=== PATIENT | male | born 1950 | race Caucasian/White ===

== ENCOUNTER → 2016-07-14 | Outpatient (REF) | payer BC ==
[~2016-07-14] MED LIST: ATOR1TAB18 PO; DIOV80TA3 PO; DRIS50002 PO; GLIP2.5T6 PO; METF-414 PO; TRIA37.53 PO
[2016-07-14 13:42] LABS: HEP C VIRUS AB SCREEN MEDICARE 0.1 INDEX (<0.8)
== END ==
LOC: M SFHCPLAZ 09:08
PROVIDERS: ATTEND Family Medicine
DX: E11.9 Type 2 diabetes mellitus without complications (principal); Z00.00 Encounter for general adult medical examination without abnormal findings; R35.1 Nocturia; E55.9 Vitamin D deficiency, unspecified
CPT/HCPCS: 36415; 82043; 82306; 83036; 87899; G0103; G0472

== ENCOUNTER → 2016-08-14 | Outpatient (REF) | payer BC ==
[2016-08-14 13:27] LABS: ANION GAP 9 MEQ/L (8-16); BLOOD UREA NITROGEN 19 MG/DL (7-18); CALCIUM LEVEL 8.9 MG/DL (8.8-10.2); CARBON DIOXIDE LEVEL 27 MEQ/L (21-32); CHLORIDE LEVEL 102 MEQ/L (98-107); CREATININE FOR GFR 0.95 MG/DL (0.70-1.30); GLOMERULAR FILTRATION RATE > 60.0 (>49); GLUCOSE, FASTING 232 MG/DL (80-110); SODIUM LEVEL 138 MEQ/L (136-145); URIC ACID 5.6 MG/DL (3.5-7.2)
== END ==
LOC: M SFHCPLAZ 10:11
PROVIDERS: ATTEND Family Medicine
DX: M13.0 Polyarthritis, unspecified (principal); E11.9 Type 2 diabetes mellitus without complications

== ENCOUNTER → 2016-08-20 | Outpatient (CLI) | payer BC ==
--- NOTE | 2016-08-21 05:43 | REP ---
REASON: Pain, no trauma. No priors. There is mild rather symmetric appearing hip joint space narrowing with mild buttressing bilaterally. There is no acute fracture or dislocation. IMPRESSION: Mild hip degenerative changes. RIGHT HIP, TWO VIEWS: Pain, no trauma. No priors. There is mild symmetric appearing hip joint space narrowing with buttressing. There is no acute fracture or dislocation. LEFT HIP, TWO VIEWS: Pain, no trauma. No priors. There is mild symmetric appearing hip joint space narrowing with buttressing. There is no acute fracture or dislocation. Signed by Evan Gilliam DO 08/21/2016 03:36 P
--- NOTE | 2016-08-21 05:44 | REP ---
REASON: Pain. AP and lateral views only were obtained. There is slight tricompartmental marginal osteophytosis with slight medial compartmental and patellofemoral joint space narrowing. Limited two view exam shows no fracture. IMPRESSION: Chronic changes as described above. Signed by Evan Gilliam DO 08/21/2016 03:36 P
== END ==
LOC: M WUC 18:31
PROVIDERS: ATTEND Family Medicine
DX: M13.0 Polyarthritis, unspecified (principal); M25.561 Pain in right knee; M25.552 Pain in left hip; M25.551 Pain in right hip

== ENCOUNTER → 2016-09-02 | Outpatient (REF) | payer BC ==
[2016-09-04 00:08] LABS: Lyme Disease IgG/IgM Antibodie <0.91 ISR (0.00-0.90); Lyme Disease IgM Ab Quantitati <0.80 index (0.00-0.79)
== END ==
LOC: M SFHCPLAZ 08:22
PROVIDERS: ATTEND Family Medicine
DX: R53.83 Other fatigue (principal); M70.72 Other bursitis of hip, left hip

== ENCOUNTER → 2017-01-06 | Outpatient (REF) | payer BC ==
[~2017-01-06] MED LIST changes: -ATOR1TAB18 PO; +ATOR80TA59 PO
== END ==
LOC: M SFHCPLAZ 11:39
PROVIDERS: ATTEND Family Medicine
DX: E11.9 Type 2 diabetes mellitus without complications (principal)

== ENCOUNTER → 2017-12-28 | Outpatient (REF) | payer BC ==
[2017-12-28 13:00] LABS: ANION GAP 9 MEQ/L (8-16); BLOOD UREA NITROGEN 18 MG/DL (7-18); CALCIUM LEVEL 9.5 MG/DL (8.8-10.2); CARBON DIOXIDE LEVEL 28 MEQ/L (21-32); CHLORIDE LEVEL 104 MEQ/L (98-107); CHOLESTEROL LEVEL 144 MG/DL (<200); CHOLESTEROL RISK RATIO 3.063 (<5); CREATININE FOR GFR 0.98 MG/DL (0.70-1.30); GLOMERULAR FILTRATION RATE > 60.0 (>49); GLUCOSE, FASTING 91 MG/DL (70-100); HDL CHOLESTEROL 47 MG/DL (>40); LDL CHOLESTEROL 58 MG/DL (<100); NON-HDL-C 97 MG/DL; SODIUM LEVEL 141 MEQ/L (136-145); TRIGLYCERIDES LEVEL 197 MG/DL (<150)
[2017-12-28 13:07] LABS: ESTIMATED AVERAGE GLUCOSE 186 MG/DL (60-110); HEMOGLOBIN A1c 8.1 %
[2017-12-28 13:08] LABS: TOTAL 25(OH) VITAMIN D 36.2 NG/ML (30.0-100.0)
[2017-12-28 13:40] LABS: MALB URINE SIEMENS 14.1 MG/L
[2017-12-28 13:44] LABS: MAU/CREAT RATIO 10.1 MCG/MG (0.0-30.0)
== END ==
LOC: M SFHCPLAZ 11:32
DX: E11.65 Type 2 diabetes mellitus with hyperglycemia (principal); E55.9 Vitamin D deficiency, unspecified
CPT/HCPCS: 83036

== ENCOUNTER → 2018-01-04 | Outpatient (CLI) | payer BC | LOC: M RAD 08:31 | DX: Z87.891 Personal history of nicotine dependence (principal) | CPT/HCPCS: 76706 ==

== ENCOUNTER → 2018-08-10 | Outpatient (REF) | payer BC ==
[~2018-08-10] MED LIST changes: -DRIS50002 PO; +DRIS50003 PO
[2018-08-10 14:36] LABS: BLOOD UREA NITROGEN 17 MG/DL (7-18); CALCIUM LEVEL 8.9 MG/DL (8.8-10.2); CARBON DIOXIDE LEVEL 25 MEQ/L (21-32); CHLORIDE LEVEL 106 MEQ/L (98-107); CREATININE FOR GFR 0.93 MG/DL (0.70-1.30); GLOMERULAR FILTRATION RATE > 60.0 (>49); GLUCOSE, FASTING 207 MG/DL (70-100); POTASSIUM SERUM 3.7 MEQ/L (3.5-5.1); SODIUM LEVEL 139 MEQ/L (136-145)
== END ==
LOC: M SFHCPLAZ 11:12
PROVIDERS: ATTEND Family Medicine
DX: E11.65 Type 2 diabetes mellitus with hyperglycemia (principal)

== ENCOUNTER → 2018-12-14 | Outpatient (REF) | payer BC ==
[2018-12-14 13:07] LABS: BLOOD UREA NITROGEN 17 MG/DL (7-18); CALCIUM LEVEL 9.3 MG/DL (8.8-10.2); CARBON DIOXIDE LEVEL 27 MEQ/L (21-32); CHLORIDE LEVEL 103 MEQ/L (98-107); CREATININE FOR GFR 1.02 MG/DL (0.70-1.30); GLOMERULAR FILTRATION RATE > 60.0 (>49); GLUCOSE, FASTING 248 MG/DL (70-100); POTASSIUM SERUM 4.1 MEQ/L (3.5-5.1); SODIUM LEVEL 137 MEQ/L (136-145)
[2018-12-14 13:21] LABS: HEMOGLOBIN A1c 8.9 %
== END ==
LOC: M SFHCPLAZ 09:06
PROVIDERS: ATTEND Family Medicine
DX: E11.65 Type 2 diabetes mellitus with hyperglycemia (principal)

== ENCOUNTER → 2018-12-20 | Outpatient (CLI) | payer BC ==
--- NOTE | 2018-12-20 14:33 | REP ---
ULTRASOUND ABDOMINAL AORTA: Real-time sonographic evaluation of the abdominal aorta performed. There is no sonographic evidence of abdominal aortic aneurysm. Proximally, the maximum AP diameter of the abdominal aorta just below the diaphragm is at 3.2 cm, mid aspect 2.7 cm and distally, 2.3 cm. Common iliac arteries are slightly ectatic, right measuring 1.2 cm and left 1.4 cm in AP dimension. There is mild scattered atherosclerotic plaquing. IMPRESSION: Slight ectasia of the very proximal abdominal aorta, maximum AP diameter 3.2 cm. Otherwise, no sonographic evidence of abdominal aortic aneurysm. Electronically Signed by Rajesh Smith MD 12/21/2018 01:55 P
== END ==
LOC: M RAD 08:14
PROVIDERS: ATTEND Family Medicine
DX: I71.2 Thoracic aortic aneurysm, without rupture (principal)

== ENCOUNTER → 2018-12-28 | Outpatient (REF) | payer BC ==
[2018-12-28 12:21] LABS: APPEARANCE, URINE CLEAR (CLEAR); BACTERIA, URINE AUTO NEGATIVE (NEGATIVE); BILIRUBIN, URINE AUTO NEGATIVE (NEGATIVE); BLOOD, URINE BLOOD 3+ (NEGATIVE); COLOR, URINE YELLOW (YELLOW); GLUCOSE, URINE (UA) AUTO 3+ mg/dL (NEGATIVE); KETONE, URINE AUTO TRACE mg/dL (NEGATIVE); LEUKOCYTE ESTERASE, URINE AUTO NEGATIVE (NEGATIVE); MUCUS, URINE SMALL (NEGATIVE); NITRITE, URINE AUTO NEGATIVE (NEGATIVE); PROTEIN, URINE AUTO NEGATIVE (NEGATIVE); RBC, URINE AUTO 16 /HPF (0-3); SPECIFIC GRAVITY URINE AUTO 1.017 (1.002-1.035); SQUAMOUS EPITHELIAL CELL UR AU 0 /HPF (0-6); UROBILINOGEN, URINE AUTO 0.2 mg/dL (0.0-2.0); WBC, URINE AUTO 1 /HPF (0-3)
[2018-12-28 12:22] LABS: BASO # 0.1 10^3/uL (0.0-0.2); BASO % 0.7 % (0.0-1.0); EOS # 0.2 10^3/uL (0.0-0.5); EOS % 2.1 % (0.0-3.0); HEMATOCRIT 43.5 % (42.0-52.0); HEMOGLOBIN 14.8 g/dl (13.5-17.5); LYMPH # 2.7 10^3/uL (1.5-5.0); LYMPH % 27.2 % (24.0-44.0); MEAN CORPUSCULAR HEMOGLOBIN 28.8 pg (27.0-33.0); MEAN CORPUSCULAR VOLUME 84.6 fl (80.0-96.0); MONO # 0.8 10^3/uL (0.0-0.8); MONO % 8.5 % (0.0-5.0); NEUTROPHILS % 60.6 % (36.0-66.0); PLATELET COUNT, AUTOMATED 178 10^3/uL (150-450); RED BLOOD COUNT 5.14 10^6/uL (4.30-6.10); WHITE BLOOD COUNT 9.9 10^3/uL (4.0-10.0)
== END ==
LOC: M SFHCPLAZ 10:37
PROVIDERS: ATTEND Family Medicine
DX: R31.0 Gross hematuria (principal)

== ENCOUNTER → 2019-01-03 | Outpatient (CLI) | payer BC ==
--- NOTE | 2019-01-04 04:46 | REP ---
Clinical: Gross hematuria. Technique: Real time romero scale ultrasound examination using curved array transducer. Findings: The bilateral kidneys are normal in contour, size, echogenicity, and reniform shape. No hydronephrosis, nephrolithiasis, renal mass lesion or perinephric fluid collection identified. Bladder is normal and bilateral ureteral jets are identified. Right kidney measures 12.0 x 5.5 x 5.8 cm without cyst. Left kidney measures 13.5 x 8.2 x 6.3 cm and includes 1.9 cm upper pole cyst and 4.5 cm lower pole cyst. Impression: 1. Simple left renal cysts. 2. Otherwise normal renal ultrasound. Electronically Signed by Adam Sullivan MD 01/04/2019 04:37 A
== END ==
LOC: M RAD 08:08
PROVIDERS: ATTEND Family Medicine
DX: N28.1 Cyst of kidney, acquired (principal)

== ENCOUNTER → 2019-01-04 | Outpatient (CLI) | payer BC ==
[2019-01-04 13:59] LABS: BLOOD UREA NITROGEN 16 MG/DL (7-18); CALCIUM LEVEL 9.2 MG/DL (8.8-10.2); CARBON DIOXIDE LEVEL 28 MEQ/L (21-32); CHLORIDE LEVEL 104 MEQ/L (98-107); CREATININE FOR GFR 1.04 MG/DL (0.70-1.30); GLOMERULAR FILTRATION RATE > 60.0 (>49); GLUCOSE, FASTING 82 MG/DL (70-100); POTASSIUM SERUM 4.2 MEQ/L (3.5-5.1); SODIUM LEVEL 141 MEQ/L (136-145)
[2019-01-04 14:52] LABS: APPEARANCE, URINE CLEAR (CLEAR); BACTERIA, URINE AUTO NEGATIVE (NEGATIVE); BILIRUBIN, URINE AUTO NEGATIVE (NEGATIVE); BLOOD, URINE BLOOD NEGATIVE (NEGATIVE); COLOR, URINE STRAW (YELLOW); GLUCOSE, URINE (UA) AUTO NEGATIVE (NEGATIVE); KETONE, URINE AUTO NEGATIVE (NEGATIVE); LEUKOCYTE ESTERASE, URINE AUTO NEGATIVE (NEGATIVE); MUCUS, URINE SMALL (NEGATIVE); NITRITE, URINE AUTO NEGATIVE (NEGATIVE); PROTEIN, URINE AUTO NEGATIVE (NEGATIVE); RBC, URINE AUTO 0 /HPF (0-3); SPECIFIC GRAVITY URINE AUTO 1.006 (1.002-1.035); SQUAMOUS EPITHELIAL CELL UR AU 0 /HPF (0-6); UROBILINOGEN, URINE AUTO 0.2 mg/dL (0.0-2.0); WBC, URINE AUTO 0 /HPF (0-3)
== END ==
LOC: M SMT 11:21
PROVIDERS: ATTEND Nurse Practitioner Women's Health
DX: R31.0 Gross hematuria (principal); Z12.5 Encounter for screening for malignant neoplasm of prostate
CPT/HCPCS: 36415; 80048; 81001; 87086; G0103

== ENCOUNTER → 2019-01-04 | Outpatient (REF) | payer BC | LOC: M SMT 13:28 | PROVIDERS: ATTEND Nurse Practitioner Women's Health | DX: R31.0 Gross hematuria (principal) ==

== ENCOUNTER → 2019-01-10 | Outpatient (CLI) | payer BC ==
[~2019-01-10] MED LIST changes: +ISOVUE-370 76% 100ML VIAL (Q9967) As Ordered ONE
--- NOTE | 2019-01-10 12:10 | REP ---
REASON: Gross hematuria. PRIORS: None. CONTRAST: [address] urogram is also performed. The lung bases are clear. The precontrast enhanced portion of the examination shows hepatic and splenic densities to be within normal limits. There are no choleliths. Two left sided nephroliths are seen in the inferior pole region. Two low density structures are also seen arising from the inferior pole. The largest measures 3.7 cm and both have Hounsfield unit density readings of water. There are two tiny calcific densities in the inferior pole of the right kidney. No obstructive phenomena is seen on either side. There are no ureteroliths and there are no urinary bladder calcifications. There are bilateral pelvic phleboliths. Contrast enhanced portion of the examination shows additional small low density structures in the left kidney, one in the inferior pole and one in the superior pole, the largest of which measures 1.5 cm and neither of which show any enhancement characteristics and both having water density Hounsfield unit readings. The aforementioned cysts in the inferior pole also show no evidence of contrast enhancement whatsoever. The liver, gallbladder, spleen, pancreas, and adrenal glands are within normal limits. The abdominal aorta and paraaortic regions are within normal limits. The bowel loops and their mesenteries are within normal limits. There are scattered colonic diverticula. There is no free fluid or free air. CT PELVIS: The bowel loops and their mesenteries are within normal limits. There is no mass or adenopathy. Delayed imaging through the urinary bladder shows no evidence of a filling defect involving any portion of the contrast opacified urinary bladder. CT urography shows no evidence of hydronephrosis or hydroureter. Incomplete opacification seen involving the inferior aspect of each ureter on the 3D MIP images. Bone window technique throughout the exam shows chronic spinal and sacroiliac joint degenerative changes. There is bilateral L5 spondylolysis in conjunction with a grade 1 L5 upon S1 spondylolisthesis. IMPRESSION: 1. Multiple renal cysts as described above. These are Bosniak class I simple cysts. 2. Bilateral tiny nonobstructing renal calculi as described above. 3. No evidence of obstructive uropathy or urinary bladder filling defect as described above. 4. Chronic osseous changes as described above. 5. Other findings as described above. Electronically Signed by Evan Gilliam DO 01/10/2019 02:38 P
== END ==
LOC: M RAD 07:33
PROVIDERS: ATTEND Nurse Practitioner Women's Health
DX: N28.1 Cyst of kidney, acquired (principal); N20.0 Calculus of kidney; R31.0 Gross hematuria
CPT/HCPCS: 74178; Q9967

== ENCOUNTER 2019-01-24 02:58 | Observation (INO) | payer BC ==
[~2019-01-24] VITALS: Ht 177.8 cm; Wt 102.2 kg
[~2019-01-24 02:58] MED LIST changes: -ISOVUE-370 76% 100ML VIAL (Q9967) As Ordered ONE
[2019-01-24] MEDS ORDERED: HYDR25TAB PO (03:12)
[2019-01-24] MEDS ORDERED: METF-791 PO (03:12)
[2019-01-24] MEDS ORDERED: ATOR1TAB19 PO (03:12)
[2019-01-24] MEDS ORDERED: SPIR-10 PO (03:12)
[2019-01-24 03:28] LABS: BASO # 0.1 10^3/uL (0.0-0.2); BASO % 0.4 % (0.0-1.0); EOS # 0.1 10^3/uL (0.0-0.5); HEMOGLOBIN 14.3 g/dl (13.5-17.5); LYMPH # 1.9 10^3/uL (1.5-5.0); LYMPH % 13.7 % (24.0-44.0); MEAN CORPUSCULAR HEMOGLOBIN 29.4 pg (27.0-33.0); MEAN CORPUSCULAR VOLUME 86.2 fl (80.0-96.0); MONO # 0.8 10^3/uL (0.0-0.8); MONO % 5.5 % (0.0-5.0); NEUTROPHILS # 10.8 10^3/uL (1.5-8.5); PLATELET COUNT, AUTOMATED 198 10^3/uL (150-450); RED BLOOD COUNT 4.87 10^6/uL (4.30-6.10); WHITE BLOOD COUNT 13.7 10^3/uL (4.0-10.0)
[2019-01-24] MEDS ORDERED: MORPHINE 4 MG/ML 1ML VIAL/SYRINGE (J2270) As Ordered ONE (03:36)
[2019-01-24] MEDS ORDERED: ONDANSETRON 4MG/2ML VIAL (J2405) As Ordered ONE (03:36)
[2019-01-24] MEDS ORDERED: ONDANSETRON 4MG/2ML VIAL (J2405) IV ONE (03:45)
[2019-01-24] MEDS ORDERED: MORPHINE 4 MG/ML 1ML VIAL/SYRINGE (J2270) IV ONE ×2 (03:45→04:15)
[2019-01-24] MEDS ORDERED: NS 1,000 ML IV ONE ×2 (03:45→06:00)
[2019-01-24 03:59] LABS: ALBUMIN 4.3 GM/DL (3.2-5.2); BILIRUBIN,DIRECT 0.2 MG/DL (0.0-0.2); BILIRUBIN,TOTAL 0.5 MG/DL (0.2-1.0); CALCIUM LEVEL 9.9 MG/DL (8.8-10.2); CREATININE FOR GFR 1.62 MG/DL (0.70-1.30); GLOMERULAR FILTRATION RATE 45.6 (>49); POTASSIUM SERUM 4.1 MEQ/L (3.5-5.1); TOTAL PROTEIN 6.7 GM/DL (6.4-8.2)
[2019-01-24] MEDS ORDERED: TAMSULOSIN 0.4 MG CAP PO ONE (04:15)
[2019-01-24] MEDS ORDERED: ACETAMINOPHEN *IV* 1,000 MG in IV 1 EA IV ONE (04:15)
[2019-01-24] MEDS ORDERED: GLIP2.5T6 PO (04:32)
[2019-01-24] MEDS ORDERED: VITA2000 PO (04:32)
[2019-01-24] MEDS ORDERED: LOSA25TA14 PO (04:33)
--- NOTE | 2019-01-24 05:39 | REPVR ---
PROCEDURE INFORMATION: Exam: CT Abdomen And Pelvis Without Contrast Exam date and time: 01/24/2019 4:16 AM Clinical history: 68 years old, male; Abdominal pain; Additional info: L colic TECHNIQUE: Imaging protocol: Computed tomography of the abdomen and pelvis without contrast. Radiation optimization: All CT scans at this facility use at least one of these dose optimization techniques: automated exposure control; mA and/or kV adjustment per patient size (includes targeted exams where dose is matched to clinical indication); or iterative reconstruction. COMPARISON: CT ABD PELVIS W/O FOL BY WIT 01/10/2019 7:51 AM FINDINGS: Liver: Normal. No mass. Gallbladder and bile ducts: Normal. No calcified stones. No ductal dilation. Pancreas: Normal. No ductal dilation. Spleen: Normal. No splenomegaly. Adrenals: Minimal left adrenal gland thickening. Kidneys and ureters: 3.5 cm left renal exophytic cyst. Numerous nonobstructing renal calculi measuring up to 5 mm. Mild right renal atrophy. Mild left renal swelling and perinephric stranding with mild left renal hydronephrosis. 1.2 cm left superior renal pole cyst. Partially obstructing mid left ureteral 5 x 4 mm calculus on coronal series 202 image 55 causing mild left renal hydronephrosis. Stomach and bowel: Moderate sigmoid diverticulosis coli. Appendix: No evidence of appendicitis. Intraperitoneal space: Unremarkable. No free air. No significant fluid collection. Vasculature: Unremarkable. No abdominal aortic aneurysm. Lymph nodes: Unremarkable. No enlarged lymph nodes. Bladder: Unremarkable as visualized. Reproductive: Mild prostate gland enlargement measuring 5.3 cm, correlate with PSA. Bones/joints: L5 bilateral spondylolysis with grade 2 L5-S1 anterolisthesis. Moderate to severe associated L5-S1 foraminal stenosis. Soft tissues: Small left inguinal fat protruding hernia. IMPRESSION: 1. Partially obstructing mid left ureteral 5 x 4 mm calculus on coronal series 202 image 55 causing mild left renal hydronephrosis. Numerous additional nonobstructing bilateral renal calculi. 2. L5 bilateral spondylolysis with grade 2 L5-S1 anterolisthesis. Moderate to severe associated L5-S1 foraminal stenosis. 3. Mild prostate gland enlargement measuring 5.3 cm, correlate with PSA. Electronically signed by: Kamran Merritt On 01/24/2019 05:38:49 AM
[2019-01-24] MEDS: HumaLOG INSULIN (NovoLOG) PER UNIT SC SCH ×3 (06:00→18:36)
[2019-01-24] MEDS ORDERED: cefTRIAXone SOD 1 GM in D5W MINI-BAG PLUS 50 ML IV ONE (06:15)
[2019-01-24] MEDS ORDERED: GLUCOSE 4 GM CHEW TABLET PO PRN (06:45)
[2019-01-24] MEDS ORDERED: GLUCAGON FOR INJ 1 MG VIAL (J1610) SC PRN (06:45)
[2019-01-24] MEDS ORDERED: DEXTROSE 50% 50 ML SYRINGE IV PRN (06:45)
[2019-01-24] MEDS ORDERED: MORPHINE 10 MG/ML 1ML VIAL (J2270) IV ONE (06:45)
[2019-01-24] MEDS ORDERED: ONDANSETRON 4MG/2ML VIAL (J2405) IV PRN (07:15)
[2019-01-24] MEDS ORDERED: NS IV ONE (07:30)
[2019-01-24] MEDS ORDERED: KETAMINE HCL IV ONE (07:30)
--- NOTE | 2019-01-24 08:05 | CR.PDOC ---
General Date of Consultation: Jan 24, 2019 Consultation REASON FOR CONSULTATION/CHIEF COMPLAINT: Left colic HISTORY OF PRESENT ILLNESS: 68-year-old male with a 1 day history of left-sided colic. Patient reports the pain as severe. He reports nausea and vomiting 2. He denies fever or chills. He denies a prior history of stone disease. He currently denies gross hematuria but did no dark urine of approximately 1 month ago. Patient was seen by urology and a CT scan urogram was ordered. Patient had a 1 cm left lower pole stone and a left renal cyst with no evidence of hydronephrosis. Patient was scheduled for cystoscopy later today. A CT scan in the emergency department shows a small 4 mm left midureteral calculus with mild hydronephrosis. A 1 cm left lower pole stone is still present. Patient reports a high intake of oxalates. He denies a history of gout. ALLERGIES: Please see below. HOME MEDICATIONS: Please see below. PAST MEDICAL HISTORY: 1. Diabetes mellitus. 2. Hypertension. 3. Enlarged aorta PAST SURGICAL HISTORY: 1. Cataracts SOCIAL HISTORY: Patient reports a history of less than 1 pack per day for 10 years smoking. Patient discontinued smoking 15 years ago. REVIEW OF SYSTEMS: CONSTITUTIONAL: Denies fever or chills. Denies weight loss HEENT: Denies headache. CARDIOVASCULAR: Denies chest pain. RESPIRATORY: Denies shortness of breath. GENITOURINARY: See HPI. MUSCULOSKELETAL: Denies joint pain. GASTROINTESTINAL: Reports vomiting 2, denies diarrhea. SKIN: Denies rashes. NEUROLOGICAL: Denies neurological diseases. HEMATOLOGIC/LYMPHATIC: Denies bleeding disorders. ALLERGIC/IMMUNOLOGIC: Denies allergies. PHYSICAL EXAMINATION: VITAL SIGNS: Please see below. GENERAL APPEARANCE: Well-developed well-nourished male in no apparent distress. HEENT: Unremarkable. RESPIRATORY: No respiratory distress. CARDIOVASCULAR: No peripheral edema. ABDOMEN: Obese, nontender with no CVA tenderness. EXTREMITIES: Full range of motion. NEUROLOGICAL: No focal deficits. LABORATORY DATA: Please see below. CT scan as above WBC 13.7 BUN 19, creatinine 1.62 ASSESSMENT/PLAN: 1. Small left midureteral calculus with mild hydronephrosis. Patient is currently asymptomatic with good pain control. Treatment options were discussed including medical expulsive therapy versus ureteroscopy with laser lithotripsy and stone removal. Patient has elected medical expulsive therapy. Recommend IV hydration with analgesics as needed. Strain urine for stones. Begin Flomax 0.4 mg daily. Please schedule a KUB in the morning and patient will be reassessed for possible ureteroscopy. We will follow with you during his hospitalization. Vital Signs/I&O Vital Signs Date Time Temp Pulse Resp B/P (MAP) Pulse Ox O2 Delivery O2 Flow Rate FiO2 01/24/19 07:08 18 01/24/19 07:02 57 122/63 (82) 95 Room Air 01/24/19 02:59 97.8 I&O- Last 24 Hours up to 6 AM 01/24/19 06:00 Intake Total 1100 ml Balance 1100 ml Laboratory Data Labs 24H Laboratory Tests 2 01/24/19 03:14: Immature Granulocyte % (Auto) 0.4, White Blood Count 13.7H, Red Blood Count 4.87, Hemoglobin 14.3, Hematocrit 42.0, Mean Corpuscular Volume 86.2, Mean Corpuscular Hemoglobin 29.4, Mean Corpuscular Hemoglobin Concent 34.0, Red Cell Distribution Width 12.9, Platelet Count 198, Neutrophils (%) (Auto) 79.0H, L ymphocytes (%) (Auto) 13.7L, Monocytes (%) (Auto) 5.5H, Eosinophils (%) (Auto) 1.0, Basophils (%) (Auto) 0.4, Neutrophils # (Auto) 10.8H, Lymphocytes # (Auto) 1.9, Monocytes # (Auto) 0.8, Eosinophils # (Auto) 0.1, Basophils # (Auto) 0.1, Nucleated Red Blood Cells % (auto) 0.0, Anion Gap 11, Glomerular Filtration Rate 45.6L, Calcium Level 9.9, Aspartate Amino Transf (AST/SGOT) 21, Alanine Aminotransferase (ALT/SGPT) 39, Alkaline Phosphatase 49, Total Bilirubin 0.5, Direct Bilirubin 0.2, Total Protein 6.7, Albumin 4.3, Albumin/Globulin Ratio 1.79, Lipase 87, Prostate Specific Antigen Screen 0.95 CBC/BMP Laboratory Tests 01/24/19 03:14 Red Blood Count 4.87, Mean Corpuscular Volume 86.2, Mean Corpuscular Hemoglobin 29.4, Mean Corpuscular Hemoglobin Concent 34.0, Red Cell Distribution Width 12.9, Neutrophils (%) (Auto) 79.0 H, Lymphocytes (%) (Auto) 13.7 L, Monocytes (% ) (Auto) 5.5 H, Eosinophils (%) (Auto) 1.0, Basophils (%) (Auto) 0.4, Neutrophils # (Auto) 10.8 H, Lymphocytes # (Auto) 1.9, Monocytes # (Auto) 0.8, Eosinophils # (Auto) 0.1, Basophils # (Auto) 0.1 Allergies Coded Allergies: No Known Drug Allergies (Verified Allergy, Unknown, 01/24/19) Home Medications Scheduled Atorvastatin Calcium (Atorvastatin Calcium) 10 Mg Tablet, 10 MG PO DAILY, (Reported) Cholecalciferol (Vitamin D3) (Vitamin D3) 2,000 Unit Capsule, 2,000 UNIT PO DAILY, (Reported) Glipizide (Glipizide ER) 2.5 Mg Tab, 2.5 MG PO DAILY, (Reported) Glipizide (Glipizide ER) 2.5 Mg Tab.er.24, 5 MG PO QPM, (Reported) Hydrochlorothiazide (Hydrochlorothiazide) 25 Mg Tablet, 25 MG PO DAILY, (Reported) Losartan Potassium (Losartan Potassium) 25 Mg Tablet, 25 MG PO DAILY, (Reported) Metformin HCl (Metformin HCl ER) 500 Mg Tab.er.24h, 1,000 MG PO BID, (Reported) Spironolactone (Spironolactone) 25 Mg Tablet, 25 MG PO DAILY, (Reported) Anthony Villanueva MD Jan 24, 2019 08:05
--- NOTE | 2019-01-24 08:18 | ECGEPIP ---
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
[2019-01-24] MEDS: NS 1,000 ML IV SCH ×2 (09:05→18:36)
[2019-01-24 09:45] VITALS: BP 122/75
--- NOTE | 2019-01-24 09:53 | HPE ---
DATE OF ADMISSION: 01/24/2019 CHIEF COMPLAINT: Flank pain and hematuria. This is a 68-year-old male who has had episodic hematuria. At about 11:30 in the evening he began experiencing sharp severe pain in his left flank. He felt bloated. He had nausea and vomiting. The pain continued to get worse. He came to the emergency room. Upon arrival, temperature was 97.8, pulse 50, respirations 20, blood pressure 136/67, pulse oximetry was 98. LABORATORY STUDIES: White count was 13.7, hemoglobin 14.3, hematocrit 42, platelets 198. Electrolytes were normal. BUN was elevated slightly at 19, creatinine 1.62. Nonfasting glucose was 266. Radiology studies: He had an abnormal and pelvis CT, which showed partially obstructing mid left ureteral 5 x 4 mm calculus causing mild left renal hydronephrosis. There were numerous additional nonobstructing bilateral renal calculi, mild prostate gland enlargement measuring 5.3 cm. In the emergency room, the patient was given IV fluids. He was given Zofran for nausea and vomiting with some improvement. He was given Flomax orally. The pain continued. He was given IV Tylenol with minimal relief. He was given morphine 4 mg at 3:36 a.m. intravenously. The pain was quite intense and unrelenting. He then received ketamine 25 mg IV times one dose with improvement in his pain. The urologist, Dr. Villanueva, was contacted by the emergency room physician. CT scan was reviewed with him. He recommended admission by the hospitalist and he will do a urology consultation. Electrocardiogram (EKG) was done and showed sinus bradycardia, rate of 56. Assessment was done. The patient will be admitted for observation status to the hospitalist service with Dr. Villanueva, urology, consulting. ALLERGIES: He has seasonal allergies, no known drug allergies. PRIMARY CARE PROVIDER: Dr. Wes Weinstein SOCIAL HISTORY: He is . He occasionally has an alcoholic drink. He is a former smoker. He smoked approximately one pack a day from the age of 20 to 27. Recreational drug use is none. PAST MEDICAL HISTORY: 1. Type 2 diabetes. 2. Hypertension. 3. Hypercholesterolemia. 4. Seasonal allergies. 5. History of thoracic aortic aneurysm, 5.1 cm ascending and 4.6 cm descending. 6. History of aortic stenosis. He follows with cardiology, Dr. Singer. PAST SURGICAL HISTORY: 1. Bilateral cataract extractions. HOME MEDICATIONS: - atorvastatin 10 mg by mouth daily - vitamin D 2000 units by mouth daily - hydrochlorothiazide 25 mg by mouth daily - losartan 25 mg by mouth daily - metformin 1000 mg by mouth twice a day - spironolactone 25 mg by mouth daily - glipizide 2.5 mg by mouth daily with first meal of the day FAMILY HISTORY: Mother of liver cancer. Father of a heart attack. REVIEW OF SYSTEMS: No complaint of headache. No blurry or double vision. No fever. He has had chills. No tinnitus. No hoarseness. No difficulty swallowing. No lightheadedness. No vertigo. CARDIOVASCULAR: No complaints of chest pain, shortness of breath, palpitations, or edema. RESPIRATORY: No chronic cough. No sputum production. No hemoptysis. No orthopnea. No wheeze. GASTROINTESTINAL: He has had nausea and vomiting, left flank pain. No hematochezia or melena. GENITOURINARY: He has had hematuria. He has had three or four episodes in the last month. No dysuria. No frequency. No difficulty starting flow. MUSCULOSKELETAL: No joint redness or swelling. ENDOCRINE: History of [id number] diabetes mellitus type 2. HEMATOLOGIC: No history of easy bleeding or bruising. NEUROLOGIC: No history of seizures. No paresthesias, paralysis. PSYCHIATRIC: No anxiety, depression or suicidal ideation. PHYSICAL EXAMINATION: 68-year-old cooperative male currently complaining of left flank pain. The patient is alert and oriented times three. Blood pressure 122/60, pulse 56, respirations 15. The patient is alert and oriented times three. HEENT: Pupils are equal and reactive to light. Extraocular muscles intact. Sclerae clear. Conjunctivae normal. No facial asymmetry. Pharynx, gums and tongue pink and moist. Tongue is midline. NECK: Supple without lymphadenopathy, thyromegaly or goiter. Carotids are 2+ without bruit. CHEST: Clear to auscultation without wheeze or retraction. HEART: Regular. Grade 2/3 murmur. ABDOMEN: Soft, nontender. No masses, pulsations or bruits. No organomegaly. Bowel sounds are positive. He has positive left costovertebral angle tenderness. NEUROLOGIC: No history of seizures. No paresthesias, paralysis. PSYCHIATRIC: No anxiety, depression or suicidal ideation. ASSESSMENT AND PLAN: 1. Ureterolithiasis with acute renal insufficiency. We will consult urology. Normal saline IV fluids. Rocephin IV. Send urinalysis and urine for culture and sensitivity. Consult Dr. Villanueva of urology. 2. Renal insufficiency. Expect improvement with hydration. We will monitor closely as he does have a stone. 3. Hlv-vnhhfig-gmuavjxao diabetes mellitus type 2. While he is nothing by mouth, we will do fingerstick blood sugars every 6 hours and treat according to scale. Nothing by mouth . When no longer nothing by mouth, we will do consistent carbohydrate diet. We will restart his glipizide. If kidney function improves, we will restart his metformin as well. 4. Hypertension. Currently stable. He usually takes losartan 25 mg and hydrochlorothiazide. We will hold at this time. 5. History of aortic stenosis, grade 3/6 murmur. We will consult Dr. Singer regarding this and the thoracic aortic aneurysm if the patient requires surgery. 6. Deep vein thrombosis (DVT) prophylaxis. Early ambulation and TEDs. The patient will be admitted to observation status to the hospitalist service.
[2019-01-24 14:00] VITALS: BP 113/83
[2019-01-24] MEDS: MORPHINE 4 MG/ML 1ML VIAL/SYRINGE (J2270) IV PRN (16:07)
[2019-01-24 22:00] VITALS: BP 123/68
[2019-01-25] MEDS: HumaLOG INSULIN (NovoLOG) PER UNIT SC SCH ×4 (01:37→18:13)
[2019-01-25 02:00] VITALS: BP 135/73
[2019-01-25] MEDS: MORPHINE 4 MG/ML 1ML VIAL/SYRINGE (J2270) IV PRN ×4 (02:28→17:07)
[2019-01-25] MEDS: NS 1,000 ML IV SCH ×2 (04:00→16:09)
[2019-01-25 06:00] VITALS: BP 137/79
[2019-01-25 06:27] LABS: BASO % 0.2 % (0.0-1.0); EOS # 0.1 10^3/uL (0.0-0.5); HEMATOCRIT 36.9 % (42.0-52.0); LYMPH # 1.2 10^3/uL (1.5-5.0); LYMPH % 13.4 % (24.0-44.0); MEAN CORPUSCULAR HEMOGLOBIN 29.4 pg (27.0-33.0); MEAN CORPUSCULAR HGB CONC 33.1 g/dl (32.0-36.5); MEAN CORPUSCULAR VOLUME 88.9 fl (80.0-96.0); MONO # 0.7 10^3/uL (0.0-0.8); MONO % 7.7 % (0.0-5.0); NEUTROPHILS # 6.8 10^3/uL (1.5-8.5); NEUTROPHILS % 77.4 % (36.0-66.0); PLATELET COUNT, AUTOMATED 143 10^3/uL (150-450); RED BLOOD COUNT 4.15 10^6/uL (4.30-6.10); WHITE BLOOD COUNT 8.8 10^3/uL (4.0-10.0)
[2019-01-25 06:36] LABS: HEMOGLOBIN 12.2 g/dl (13.5-17.5)
[2019-01-25 06:55] LABS: ALBUMIN 3.2 GM/DL (3.2-5.2); BILIRUBIN,TOTAL 0.5 MG/DL (0.2-1.0); CALCIUM LEVEL 7.8 MG/DL (8.8-10.2); CREATININE FOR GFR 1.7 MG/DL (0.70-1.30); GLOMERULAR FILTRATION RATE 43.1 (>49); MAGNESIUM LEVEL 1.9 MG/DL (1.8-2.4); POTASSIUM SERUM 3.9 MEQ/L (3.5-5.1); TOTAL PROTEIN 5.8 GM/DL (6.4-8.2)
--- NOTE | 2019-01-25 08:18 | IPNPDOC ---
Date Seen The patient was seen on 01/25/19. Progress Note SUBJECTIVE: Patient continues to have pain, pain is controlled with analgesics. Denies passage of stone. No KUB performed this AM OBJECTIVE PHYSICAL EXAMINATION: VITAL SIGNS: Please see below. Abdomen: soft non tender, no CVA-tenderness LABORATORY DATA, IMAGING STUDIES, MICROBIOLOGY: Please see below. WBC 8.8 ASSESSMENT AND PLAN: Left ureteral calculus. Patient wishes to continue with ks dical expulsive therapy. Patient has a low grade fever this AM. Patient to continue with oral hydration, Flomax. Strain urine. Begin antibiotics. If has continue to have fever will need double J stent. Will check KUB this AM. VS, I&O, 24H, Fishbone Vital Signs/I&O Vital Signs Date Time Temp Pulse Resp B/P (MAP) Pulse Ox O2 Delivery O2 Flow Rate FiO2 01/25/19 06:44 18 01/25/19 06:00 100.0 55 137/79 (98) 90 01/24/19 09:28 Room Air I&O- Last 24 Hours up to 6 AM 01/25/19 06:00 Intake Total 4400 ml Output Total 1050 ml Balance 3350 ml Laboratory Data 24H LABS Laboratory Tests 2 01/24/19 12:28: Bedside Glucose (Misc Panel) 170H 01/24/19 16:30: Bedside Glucose (Misc Panel) 195H 01/24/19 20:43: Bedside Glucose (Misc Panel) 205H 01/25/19 00:18: Bedside Glucose (Misc Panel) 190H 01/25/19 06:05: Immature Granulocyte % (Auto) 0.3, White Blood Count 8.8, Red Blood Count 4.15L, Hemoglobin 12.2#L, Hematocrit 36.9L, Mean Corpuscular Volume 88.9, Mean Corpuscular Hemoglobin 29.4, Mean Corpuscular Hemoglobin Concent 33.1, Red Cell Distribution Width 13.1, Platelet Count 143L, Neutrophils (%) (Auto) 77.4H, Lymphocytes (%) (Auto) 13.4L, Monocytes (%) (Auto) 7.7H, Eosinophils (%) (Auto) 1.0, Basophils (%) (Auto) 0.2, Neutrophils # (Auto) 6.8, Lymphocytes # (Auto) 1.2L, Monocytes # (Auto) 0.7, Eosinophils # (Auto) 0.1, Basophils # (Auto) 0.0, Nucleated Red Blood Cells % (auto) 0.0, Anion Gap 5L, Glomerular Filtration Rate 43.1L, Blood Urea Nitrogen 20H, Creatinine 1.70H, Sodium Level 137, Potassium Level 3.9, Chloride Level 105, Carbon Dioxide Level 27, Calcium Level 7.8#L, Aspartate Amino Transf (AST/SGOT) 22, Alanine Aminotransferase (ALT/SGPT) 34, Alkaline Phosphatase 37L, Total Bilirubin 0.5, Total Protein 5.8L, Albumin 3.2#, Magnesium Level 1.9, Albumin/Globulin Ratio 1.23 01/25/19 06:15: Bedside Glucose (Misc Panel) 184H CBC/BMP Laboratory Tests 01/25/19 06:05 Red Blood Count 4.15 L, Mean Corpuscular Volume 88.9, Mean Corpuscular Hemoglobin 29.4, Mean Corpuscular Hemoglobin Concent 33.1, Red Cell Distribution Width 13.1, Neutrophils (%) (Auto) 77.4 H, Lymphocytes (%) (Auto) 13.4 L, Monocytes (%) (Auto) 7.7 H, Eosinophils (%) (Auto) 1.0, Basophils (%) (Auto) 0.2, Neutrophils # (Auto) 6.8, Lymphocytes # (Auto) 1.2 L, Monocytes # (Auto) 0.7, Eosinophils # (Auto) 0.1, Basophils # (Auto) 0.0, Calcium Level 7.8 #L, Aspartate Amino Transf (AST/SGOT) 22, Alanine Aminotransferase (ALT/SGPT) 34, Alkaline Phosphatase 37 L, Total Bilirubin 0.5, Total Protein 5.8 L, Albumin 3.2 # Anthony Villanueva MD Jan 25, 2019 08:18
[2019-01-25] MEDS: TAMSULOSIN 0.4 MG CAP PO SCH (09:13)
[2019-01-25] MEDS: ceFAZolin SOD 1 GM in D5W MINI-BAG PLUS 50 ML IV SCH ×2 (09:14→16:09)
[2019-01-25] MEDS: PERCOCET 5MG/325MG TAB PO PRN ×2 (09:29→19:41)
[2019-01-25 10:00] VITALS: BP 130/70
--- NOTE | 2019-01-25 12:00 | REP ---
KUB: Two views. History: Left ureteral stone. Comparison CT study January 24, 2019. Findings: The CT study showed a left ureteral stone at the level of the L4 vertebral body. I do not see a ureteral calculus. There are intrarenal calculi projecting in the lower pole of the left kidney. There are phleboliths in the pelvis. There are small intrarenal calculi projecting in the lower pole of the right kidney. Impression: Intrarenal nephrolithiasis bilaterally. No ureteral calculus is visible. Electronically Signed by Berry Corona MD 01/25/2019 06:45 P
[2019-01-25 14:00] VITALS: BP 142/80
[2019-01-25 15:26] LABS: APPEARANCE, URINE CLEAR (CLEAR); BACTERIA, URINE AUTO NEGATIVE (NEGATIVE); BILIRUBIN, URINE AUTO NEGATIVE (NEGATIVE); BLOOD, URINE BLOOD NEGATIVE (NEGATIVE); COLOR, URINE YELLOW (YELLOW); GLUCOSE, URINE (UA) AUTO NEGATIVE (NEGATIVE); KETONE, URINE AUTO TRACE mg/dL (NEGATIVE); LEUKOCYTE ESTERASE, URINE AUTO NEGATIVE (NEGATIVE); MUCUS, URINE SMALL (NEGATIVE); NITRITE, URINE AUTO NEGATIVE (NEGATIVE); PROTEIN, URINE AUTO NEGATIVE (NEGATIVE); RBC, URINE AUTO 6 /HPF (0-3); SPECIFIC GRAVITY URINE AUTO 1.027 (1.002-1.035); SQUAMOUS EPITHELIAL CELL UR AU 0 /HPF (0-6); UROBILINOGEN, URINE AUTO 0.2 mg/dL (0.0-2.0); WBC, URINE AUTO 0 /HPF (0-3)
--- NOTE | 2019-01-25 16:18 | IPNPDOC ---
Date Seen The patient was seen on 01/25/19. Progress Note SUBJECTIVE: Patient afebrile, partial pain control with Percocet OBJECTIVE PHYSICAL EXAMINATION: no CVA-tenderness LABORATORY DATA, IMAGING STUDIES, MICROBIOLOGY: Please see below. KUB reviewed, ureteral stone not seen ASSESSMENT AND PLAN: Patient has partial pain control with oral analgesics. Will observe overnight and keep NPO after MN. May require ureteroscopy with laser lilthotripsy tomorrow. VS, I&O, 24H, Fishbone Vital Signs/I&O Vital Signs Date Time Temp Pulse Resp B/P (MAP) Pulse Ox O2 Delivery O2 Flow Rate FiO2 01/25/19 13:00 20 01/25/19 10:00 98.5 01/25/19 06:00 55 137/79 (98) 90 01/24/19 09:28 Room Air I&O- Last 24 Hours up to 6 AM 01/25/19 06:00 Intake Total 4400 ml Output Total 1050 ml Balance 3350 ml Laboratory Data 24H LABS Laboratory Tests 2 01/24/19 16:30: Bedside Glucose (Misc Panel) 195H 01/24/19 20:43: Bedside Glucose (Misc Panel) 205H 01/25/19 00:18: Bedside Glucose (Misc Panel) 190H 01/25/19 06:05: Immature Granulocyte % (Auto) 0.3, White Blood Count 8.8, Red Blood Count 4.15L, Hemoglobin 12.2#L, Hematocrit 36.9L, Mean Corpuscular Volume 88.9, Mean Corpuscular Hemoglobin 29.4, Mean Corpuscular Hemoglobin Concent 33.1, Red Cell Distribution Width 13.1, Platelet Count 143L, Neutrophils (%) (Auto) 77.4H, Lymphocytes (%) (Auto) 13.4L, Monocytes (%) (Auto) 7.7H, Eosinophils (%) (Auto) 1.0, Basophils (%) (Auto) 0.2, Neutrophils # (Auto) 6.8, Lymphocytes # (Auto) 1.2L, Monocytes # (Auto) 0.7, Eosinophils # (Auto) 0.1, Basophils # (Auto) 0.0, Nucleated Red Blood Cells % (auto) 0.0, Anion Gap 5L, Glomerular Filtration Rate 43.1L, Blood Urea Nitrogen 20H, Creatinine 1.70H, Sodium Level 137, Potassium Level 3.9, Chloride Level 105, Carbon Dioxide Level 27, Calcium Level 7.8#L, Aspartate Amino Transf (AST/SGOT) 22, Alanine Aminotransferase (ALT/SGPT) 34, Alkaline Phosphatase 37L, Total Bilirubin 0.5, Total Protein 5.8L, Albumin 3.2#, Magnesium Level 1.9, Albumin/Globulin Ratio 1.23 01/25/19 06:15: Bedside Glucose (Misc Panel) 184H 01/25/19 12:25: Bedside Glucose (Misc Panel) 144H 01/25/19 15:00: Urine Color YELLOW, Urine Appearance CLEAR, Urine pH 5.0, Urine Specific [place] 1.027, Urine Protein NEGATIVE, Urine Glucose (Auto)(UA) NEGATIVE, Urine Ketones (Auto) TRACEH, Urine Blood NEGATIVE, Urine Nitrite NEGATIVE, Urine Bilirubin NEGATIVE, Urine Urobilinogen 0.2, Urine Leukocyte Esterase (Auto) NEGATIVE, Urine WBC (Auto) 0, Urine RBC (Auto) 6H, Urine Hyaline Casts (Auto) 0, Urine Bacteria (Auto) NEGATIVE, Urine Squamous Epithelial Cells 0, Urine Mucus (Auto) SMALL, Urine Sperm (Auto) CBC/BMP Laboratory Tests 01/25/19 06:05 Red Blood Count 4.15 L, Mean Corpuscular Volume 88.9, Mean Corpuscular Hemoglobin 29.4, Mean Corpuscular Hemoglobin Concent 33.1, Red Cell Distribution Width 13.1, Neutrophils (%) (Auto) 77.4 H, Lymphocytes (%) (Auto) 13.4 L, Monocytes (%) (Auto) 7.7 H, Eosinophils (%) (Auto) 1.0, Basophils (%) (Auto) 0.2, Neutrophils # (Auto) 6.8, Lymphocytes # (Auto) 1.2 L, Monocytes # (Auto) 0.7, Eosinophils # (Auto) 0.1, Basophils # (Auto) 0.0, Calcium Level 7.8 #L, Aspartate Amino Transf (AST/SGOT) 22, Alanine Aminotransferase (ALT/SGPT) 34, Alkaline Phosphatase 37 L, Total Bilirubin 0.5, Total Protein 5.8 L, Albumin 3.2 # Microbiology Microbiology 01/25/19 Urine Culture, Received Pending Anthony Villanueva MD Jan 25, 2019 16:18
[2019-01-25 18:00] VITALS: BP 148/83
[2019-01-25] MEDS ORDERED: PERCOCET 5MG/325MG TAB PO PRN (20:00)
--- NOTE | 2019-01-25 20:00 | IPNPDOC ---
Text Note Date of Service The patient was seen on 01/25/19. NOTE SUBJECTIVE: Mr. Trujillo is admitted with nephroureterolithiasis. He had a MAXIMUM TEMPERATURE of 100 today and still has considerable malaise. OBJECTIVE: See vital signs below Physical exam: HENT: Neck is supple, no adenopathy, oral mucosa is mildly tacky, no diaphoresis Cardiovascular: Regular rate and rhythm with a normal S1 and S2. Respiratory: Clear to auscultation with no rhonchi, rales or wheezes. Abdomen: Soft, nondistended, left-sided tenderness to flank pressure palpation, notable central obesity Extremities: No peripheral edema or lesions, pedal pulses are palpable Neuro: No focal neuromotor or sensory deficit ASSESSMENT/PLAN: Mr. Trujillo is admitted with nephroureterolithiasis. Patient had an obstructing stone to the left ureter. There are also multiple non-obstructing stones to both kidneys. Repeat view by x-ray shows that the ureteral stone may have passed. Plans are for the patient did undergo evaluation and intervention by the urology service tomorrow; this may include cystoscopy, ureteroscopy, stent placement, stone extraction or lithotripsy. VS,Fishbone, I+O VS, Fishbone, I+O Laboratory Tests 01/25/19 06:05 Red Blood Count 4.15 L, Mean Corpuscular Volume 88.9, Mean Corpuscular Hemoglobin 29.4, Mean Corpuscular Hemoglobin Concent 33.1, Red Cell Distribution Width 13.1, Neutrophils (%) (Auto) 77.4 H, Lymphocytes (%) (Auto) 13.4 L, Monocytes (%) (Auto) 7.7 H, Eosinophils (%) (Auto) 1.0, Basophils (%) (Auto) 0.2, Neutrophils # (Auto) 6.8, Lymphocytes # (Auto) 1.2 L, Monocytes # (Auto) 0 .7, Eosinophils # (Auto) 0.1, Basophils # (Auto) 0.0, Calcium Level 7.8 #L, Aspartate Amino Transf (AST/SGOT) 22, Alanine Aminotransferase (ALT/SGPT) 34, Alkaline Phosphatase 37 L, Total Bilirubin 0.5, Total Protein 5.8 L, Albumin 3.2 # Vital Signs Date Time Temp Pulse Resp B/P (MAP) Pulse Ox O2 Delivery O2 Flow Rate FiO2 01/25/19 19:41 16 01/25/19 18:00 98.9 54 148/83 (104) 90 01/24/19 09:28 Room Air I&O- Last 24 Hours up to 6 AM 01/25/19 06:00 Intake Total 4400 ml Output Total 1050 ml Balance 3350 ml ARLETTE KENT MD Jan 25, 2019 20:00
[2019-01-25 22:00] VITALS: BP 149/81
[2019-01-26] MEDS: HumaLOG INSULIN (NovoLOG) PER UNIT SC SCH ×2 (00:08→05:39)
[2019-01-26] MEDS: ceFAZolin SOD 1 GM in D5W MINI-BAG PLUS 50 ML IV SCH ×2 (00:09→08:09)
[2019-01-26 02:00] VITALS: BP 143/80
[2019-01-26] MEDS: NS 1,000 ML IV SCH ×2 (04:23→10:00)
[2019-01-26 06:00] VITALS: BP 140/90
[2019-01-26 06:12] LABS: BASO % 0.4 % (0.0-1.0); EOS # 0.1 10^3/uL (0.0-0.5); EOS % 1.8 % (0.0-3.0); HEMATOCRIT 35.1 % (42.0-52.0); HEMOGLOBIN 11.7 g/dl (13.5-17.5); LYMPH # 1.3 10^3/uL (1.5-5.0); LYMPH % 17.1 % (24.0-44.0); MEAN CORPUSCULAR HEMOGLOBIN 29.3 pg (27.0-33.0); MEAN CORPUSCULAR HGB CONC 33.3 g/dl (32.0-36.5); MEAN CORPUSCULAR VOLUME 87.8 fl (80.0-96.0); MONO # 0.9 10^3/uL (0.0-0.8); MONO % 11.2 % (0.0-5.0); NEUTROPHILS # 5.4 10^3/uL (1.5-8.5); NEUTROPHILS % 69.1 % (36.0-66.0); PLATELET COUNT, AUTOMATED 116 10^3/uL (150-450); WHITE BLOOD COUNT 7.8 10^3/uL (4.0-10.0)
[2019-01-26 06:35] LABS: BILIRUBIN,TOTAL 0.5 MG/DL (0.2-1.0); CALCIUM LEVEL 7.7 MG/DL (8.8-10.2); CREATININE FOR GFR 1.6 MG/DL (0.70-1.30); GLOMERULAR FILTRATION RATE 46.3 (>49); POTASSIUM SERUM 3.4 MEQ/L (3.5-5.1); TOTAL PROTEIN 5.7 GM/DL (6.4-8.2)
--- NOTE | 2019-01-26 07:21 | IPNPDOC ---
Date Seen The patient was seen on 01/26/19. Progress Note SUBJECTIVE: Patient has no complaints. Denies pain or colic. Denies passage of stone OBJECTIVE PHYSICAL EXAMINATION: Abdomen: soft non tender no CVA-tenderness LABORATORY DATA, IMAGING STUDIES, MICROBIOLOGY: Please see below. ASSESSMENT AND PLAN: Patient has a left ureteral calculus. Pain under control with oral analgesics. Urologically clear for discharge with Percocet and Flomax. Please schedule follow up appointment in office in one week. DISPOSITION: home VS, I&O, 24H, [facility] Vital Signs/I&O Vital Signs Date Time Temp Pulse Resp B/P (MAP) Pulse Ox O2 Delivery O2 Flow Rate FiO2 01/26/19 06:00 99.1 59 18 140/90 (107) 93 01/24/19 09:28 Room Air I&O- Last 24 Hours up to 6 AM 01/26/19 06:00 Intake Total 4156.7 ml Output Total 2325 ml Balance 1831.7 ml Laboratory Data 24H LABS Laboratory Tests 2 01/25/19 12:25: Bedside Glucose (Misc Panel) 144H 01/25/19 15:00: Urine Color YELLOW, Urine Appearance CLEAR, Urine pH 5.0, Urine Specific [place] 1.027, Urine Protein NEGATIVE, Urine Glucose (Auto)(UA) NEGATIVE, Urine Ketones (Auto) TRACEH, Urine Blood NEGATIVE, Urine Nitrite NEGATIVE, Urine Bilirubin NEGATIVE, Urine Urobilinogen 0.2, Urine Leukocyte Esterase (Auto) NEGATIVE, Urine WBC (Auto) 0, Urine RBC (Auto) 6H, Urine Hyaline Casts (Auto) 0, Urine Bacteria (Auto) NEGATIVE, Urine Squamous Epithelial Cells 0, Urine Mucus (Auto) SMALL, Urine Sperm (Auto) 01/25/19 18:07: Bedside Glucose (Misc Panel) 194H 01/25/19 23:52: Bedside Glucose (Misc Panel) 244H 01/26/19 05:35: Bedside Glucose (Misc Panel) 160H 01/26/19 05:50: Immature Granulocyte % (Auto) 0.4, Neutrophils (%) (Auto) 69.1H, Lymphocytes (%) (Auto) 17.1L, Monocytes (%) (Auto) 11.2H, Eosinophils (%) (Auto) 1.8, Basophils (%) (Auto) 0.4, Neutrophils # (Auto) 5.4, Lymphocytes # (Auto) 1.3L, Monocytes # (Auto) 0.9H, Eosinophils # (Auto) 0.1, Basophils # (Auto) 0.0, Nucleated Red Blood Cells % (auto) 0.0, Anion Gap 7L, Glomerular Filtration Rate 46.3L, Calcium Level 7.7L, Total Bilirubin 0.5, Aspartate Amino Transf (AST/SGOT) 17, Alanine Aminotransferase (ALT/SGPT) 34, Alkaline Phosphatase 48, Total Protein 5.7L, Albumin 3.0L, Albumin/Globulin Ratio 1.11 CBC/BMP Laboratory Tests 01/26/19 05:50 Microbiology Microbiology 01/25/19 Urine Culture, Received Pending Anthony Villanueva MD Jan 26, 2019 07:21
[2019-01-26] MEDS: TAMSULOSIN 0.4 MG CAP PO SCH (08:08)
[2019-01-26] MEDS ORDERED: PREVNAR 13 VACCINE SYRINGE (CPT CODE:90670) IM ONE (09:00)
[2019-01-26] MEDS ORDERED: FLUBLOK(EGG FREE)(QUAD)INFLUENZA VACC 0.5ML SYRINGE (90682)18YRS&OLDER IM ONE (09:00)
[2019-01-26 10:00] VITALS: BP 142/84
[2019-01-26] MEDS ORDERED: POTASSIUM CHLORIDE 10 MEQ SR TABLET PO ONE (10:45)
[2019-01-26] MEDS ORDERED: PERCOCET PO (10:49)
[2019-01-26] MEDS ORDERED: FLOM0.4C39 PO ×2 (10:49→10:58)
[2019-01-26] MEDS ORDERED: OXYC1TAB23 PO (10:58)
== END 2019-01-26 11:59 | disposition home or self-care (01) ==
LOC: M ED 02:58 → M ED INP 02:59 → M MSPAV 09:44
PROVIDERS: ADMIT Internal Medicine; ATTEND Internal Medicine
DX: N20.1 Calculus of ureter (principal); N20.0 Calculus of kidney; N28.9 Disorder of kidney and ureter, unspecified; N40.0 Benign prostatic hyperplasia without lower urinary tract symptoms; R10.9 Unspecified abdominal pain; R31.9 Hematuria, unspecified; E11.9 Type 2 diabetes mellitus without complications; I10 Essential (primary) hypertension; E78.00 Pure hypercholesterolemia, unspecified; Z79.84 Long term (current) use of oral hypoglycemic drugs; Z79.899 Other long term (current) drug therapy; I71.2 Thoracic aortic aneurysm, without rupture; I35.0 Nonrheumatic aortic (valve) stenosis; Z87.891 Personal history of nicotine dependence
CPT/HCPCS: 36415; 74018; 74176; 80048; 80053; 80076; 81001; 83690; 83735; 85025; 87086; 90471; 90472; 90670; 90682; 93005; 96361; 96374; 96375; 96376; 99284; G0103; J0131; J0690; J0696; J2270; J2405

== ENCOUNTER → 2019-01-31 | Outpatient (REF) | payer BC ==
[~2019-01-31] MED LIST changes: +ATOR1TAB19 PO; +FLOM0.4C39 PO; +HYDR25TAB PO; +LOSA25TA14 PO; +METF-791 PO; +OXYC1TAB23 PO; +PERCOCET PO; +SPIR-10 PO; +VITA2000 PO
[2019-01-31 14:20] LABS: BLOOD UREA NITROGEN 19 MG/DL (7-18); CALCIUM LEVEL 8.9 MG/DL (8.8-10.2); CARBON DIOXIDE LEVEL 25 MEQ/L (21-32); CHLORIDE LEVEL 105 MEQ/L (98-107); CREATININE FOR GFR 1.13 MG/DL (0.70-1.30); GLOMERULAR FILTRATION RATE > 60.0 (>49); GLUCOSE, FASTING 153 MG/DL (70-100); POTASSIUM SERUM 3.4 MEQ/L (3.5-5.1); SODIUM LEVEL 139 MEQ/L (136-145)
== END ==
LOC: M LABDRAWP 12:06
PROVIDERS: ATTEND Internal Medicine
DX: N20.0 Calculus of kidney (principal)

== ENCOUNTER → 2019-02-02 | Outpatient (REF) | payer BC ==
[2019-02-14 11:18] LABS: Size 3x3x2 mm (.); Uric Acid 100 % (.)
== END ==
LOC: M SFHCPLAZ 09:55
PROVIDERS: ATTEND Family Medicine
DX: N20.1 Calculus of ureter (principal)

== ENCOUNTER → 2019-08-09 | Outpatient (REF) | payer BC ==
[2019-08-10 12:18] LABS: HEMOGLOBIN A1c 7.4 %
[2019-08-10 12:34] LABS: BLOOD UREA NITROGEN 22 MG/DL (7-18); CARBON DIOXIDE LEVEL 28 MEQ/L (21-32); CHLORIDE LEVEL 107 MEQ/L (98-107); CREATININE FOR GFR 1.16 MG/DL (0.70-1.30); GLOMERULAR FILTRATION RATE > 60.0 (>49); GLUCOSE, FASTING 142 MG/DL (70-100); POTASSIUM SERUM 3.5 MEQ/L (3.5-5.1); SODIUM LEVEL 141 MEQ/L (136-145)
== END ==
LOC: M SFHCPLAZ 14:50
PROVIDERS: ATTEND Family Medicine
DX: E11.65 Type 2 diabetes mellitus with hyperglycemia (principal)

== ENCOUNTER → 2020-05-11 | Outpatient (CLI) | payer BC ==
[~2020-05-11] MED LIST changes: -METF-791 PO; +METF-838 PO
--- NOTE | 2020-05-11 09:13 | REP ---
INDICATION: BICUSPID AROTIC VALVE, THORACIC AA COMPARISON: 07/09/2015 TECHNIQUE: Axial noncontrast images from the thoracic inlet to the upper abdomen with coronal and sagittal reformations. This CT examination was performed using the following dose reduction techniques: Automated exposure control, adjustment of mA and/or kv according to the patient's size, and use of iterative reconstruction technique. FINDINGS: Ascending thoracic aorta again measures approximately 5.1 cm maximal diameter and is essentially unchanged. Descending thoracic aorta tapers to essentially normal and measures 2.7 cm maximal diameter. Atherosclerotic changes are identified. No evidence for dissection by noncontrast evaluation. Further evaluation of the mediastinum demonstrates no cardiomegaly or pericardial effusion. Few mildly prominent but normal mediastinal lymph nodes are nonspecific. Bilateral lung morales are well aerated and without acute consolidation, significant nodule, or mass lesion. No pleural effusion. No pneumothorax. Tracheobronchial tree is patent. IMPRESSION: 1. Stable aneurysmal dilatation to the ascending thoracic aorta measuring 5.1 cm maximal diameter unchanged compared to 2016. 2. Mild atherosclerotic changes to the thoracic aorta and coronary arteries. 3. No acute mediastinal or pleuroparenchymal process appreciated. <Electronically signed by Adam Sullivan > 05/11/20 [id number]
== END ==
LOC: M RAD 08:31
PROVIDERS: ATTEND Nurse Practitioner Family
DX: Q23.1 Congenital insufficiency of aortic valve (principal)

== ENCOUNTER → 2020-05-25 | Outpatient (CLI) | payer SELFPAY ==
[~2020-05-25] MED LIST changes: +HYDR-3490; +HYDR-3490 PO; -HYDR25TAB PO; +JARD1TAB; +SPIR-10
== END ==
LOC: M LABSMTC 10:24
PROVIDERS: ATTEND Pediatrics
DX: Z20.822 Contact with and (suspected) exposure to COVID-19 (principal)

== ENCOUNTER 2020-05-29 18:28 | Emergency (ER) | payer BC, SELFPAY ==
[~2020-05-29] VITALS: Ht 177.8 cm; Wt 108.6 kg
[~2020-05-29 18:28] MED LIST changes: -HYDR-3490; -JARD1TAB; -SPIR-10
--- OUTSIDE RECORDS SUMMARY | 2020-05-29 18:35 | CCD ---
Author Author [facility] Organization [facility] Address Unknown Phone Unavailable Care Team Providers Care Tank Worker Name Role Phone Juno Ivy Unavailable PROBLEMS Type Condition ICD9-CM Code [id number] Code Onset Dates Condition S tatus SNOMED Code Notes Problem Type 2 diabetes mellitus wit h hyperglycemia, without long-term current use of insulin E11.65 Active 14286442 Problem Ascending aortic aneurysm I71.2 Active 299676 007 Problem Morbid (severe) obesity due to excess calories E66 .01 Active 559469589 Problem Vitamin D deficiency E55.9 Active 01297628 Problem Hyperlipidemia, unspecified hyperlipidemia type E7 8.5 Active 01237972 Problem Primary osteoarthritis of both knees M17.0 Act michi 068999880 Problem Diverticulitis K57.92 Active 776858652 Problem 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 Active 4 18348707 Problem Body mass index (BMI) of 36.0-36.9 in adult Z68.36 Active 877975580 Problem Seasonal allergies J30.2 Active 960848958 Problem Kidney stone N20.0 Active 08048869 Problem Skipped heart beats I45.9 Active 454476714 ALLERGIES No Known Allergies ENCOUNTERS from 1950 to 2020-04-04 Encounter Location Date Provider Diagnosis [facility] [id number] [place] [id number] Mar, Juno Ivy IMMUNIZATIONS Vaccine Route Administration Date Status Influenza (18 yrs & older) Flublok IM Intramuscular Dec 30 8 Administered Pneumococcal 0.5mL (Prevnar 13) IM Intramuscular Dec 30, 2017 Administered Influenza (6mo & up) Fluzone IM Intramuscular Apr 22, 2016 Ad ministered SOCIAL HISTORY Tobacco Use: Social History Observation Description Date Details (start date - stop date) Former Smoker Sex Assigned At : Social History Observation Description Sex Assigned At Unknown Education: Question Answer Notes Level of Education: Finished High School Language: Question Answer Notes Languages spoken: Indonesian Moravian: Question Answer Notes Moravian 33 None Sexual Hx: Question Answer Notes Had sex in the last 12 months (vaginal, oral, or anal)? Yes Have you ever had an STD? No Prevention Strategies discussed: Other with Women only Use protection? No Alcohol Screening: Question Answer Notes Did you have a drink containing alcohol in the past year? Ye s Points 2 Interpretation Negative How often did you have six or more drinks on one occas ion in the past year? Never (0 points) How many drinks did you have on a typica l day when you were drinking in the past year? 3 or 4 (1 point) How often did you have a drink containing alcohol in t he past year? Monthly or less (1 point) BMI Care Goal Follow-Up Question Answer Notes Above Normal BMI Follow-Up Giving encouragement to exercise Tobacco Use: Question Answer Notes Are you a: former smoker How long has it been since you last smoked? > 10 years REASON FOR REFERRAL No Information VITAL SIGNS No information MEDICATIONS Medication SIG (Take, Route, Frequency, Duration) Notes Start Da te End Date Status Jardiance 10 MG 1 tablet Orally Once a day for 90 Active Cholecalciferol 2000 UNIT 1 capsule Orally Once a day for 30 day (s) Jan, Active MetFORMIN HCl ER 500 MG 2 tabs Orally bid for 30 days 2018 Active GlipiZIDE ER 2.5 MG 1 TABLET IN THE AM, 2 TAB PM TWICE A DAY ORALLY 30 DAY(S) Orally twice a day Not-Taking Vitamin D 2000 UNIT 1 capsule Orally Once a day for 30 day(s) Jan, Active Diclofenac Sodium 1 % as directed Transdermal before bedtime for 30 days Mar, Active Valacyclovir HCl 1 GM 2 tablet Orally twice daily Oct, Not-Taking Hydrochlorothiazide 25 mg 1 tablet Orally Once a day for 90 Active Pen [place] 29G X 12MM as directed Dx : E11.9 subcu taneously Daily for 30 day(s) Jul, Active Glucometer 1 freestyle precision DX:E11.9 for 9999 days August, Active Tamsulosin HCl 0.4 MG 1 capsule Orally Once a day for 30 day(s) Jan, Not-Taking Atorvastatin Calcium 10 MG 1 tablet Orally Once a day for 90 Active Blood Glucose Test Strip - free style test strips In V itro Daily before breakfast and dinner. DX: E11.65 for 90 days Active FreeStyle Chastity 14 Day Sensor - as directed _ as directed for 90 day(s) Jun, Active FreeStyle Chastity 14 Day Sensor - as directed subcutaneo usly Replace every 14 days for 84 days Dec, Active FreeStyle Chastity Sensor System - 1 sensor subcutaneousl y As directed on packaging. Z74.9 for 30 days Dec, Act michi Losartan Potassium 25 1 tablet Orally Once a day for 90 days Active PROCEDURES No Information RESULTS No Results REASON FOR VISIT refill MEDICAL (GENERAL) HISTORY Type Description Date Medical History HTN Medical History HLD Medical History T2DM, non-insulin dependent Medical History Thoracic aortic aneurism 5.1 cm ascending, 4.6 descending; follows with [facility] Medical History Fatty liver disease Medical History Stable 2.6 cm liver cyst Medical History Moderate coronary calcifications Medical History Bicuspid aortic valve with moderate Surgical History left cataract 01/13/2016 Surgical History Right cataract 12/2014 Hospitalization History kidney stone 01/2019 Goals Section No Information Health Concerns No Information MEDICAL EQUIPMENT No Information MENTAL STATUS No Information FUNCTIONAL STATUS No Information ASSESSMENTS No Information PLAN OF TREATMENT Medication Medication Name Sig Start Date Stop Date Hydrochlorothiazide 25 mg 1 tablet Orally Once a day for 90 FreeStyle Chastity 14 Day Sensor - as directed subcutaneo usly Replace every 14 days for 84 days Dec, Atorvastatin Calcium 10 MG 1 tablet Orally Once a day for 90 MetFORMIN HCl ER 500 MG 2 tabs Orally bid for 30 days Jan, Jardiance 10 MG 1 tablet Orally Once a day for 90 Losartan Potassium 25 1 tablet Orally Once a day for 90 days Insurance Providers Payer Name Payer Address Payer Phone Insured Name Patient Relati onship to Insured Coverage Start Date Coverage End Date [employer] PPO [phone] [facility] [place] [address] TAD TRUJILLO [id number]
--- OUTSIDE RECORDS SUMMARY | 2020-05-29 18:35 | CCD ---
Author Author [facility] Organization [facility] Address Unknown Phone Unavailable Care Team Providers Care Hedge Trimmer Name Role Phone Alicia Singer MD Unavailable Unavailable Alicia Singer MD Unavailable Unavailable Alicia Singer MD Unavailable Unavailable Alicia Singer MD Unavailable Unavailable Alicia Singer MD Unavailable Unavailable Alicia Singer MD Unavailable Unavailable Alicia Singer MD Unavailable Unavailable Alicia Singer MD Unavailable Unavailable Alicia Singer MD Unavailable Unavailable Alicia Singer MD Unavailable Unavailable Alicia Singer MD Unavailable Unavailable Alicia Singer MD Unavailable Unavailable Alicia Singer MD Unavailable Unavailable Alicia Singer MD Unavailable Unavailable Alicia Singer MD Unavailable Unavailable Alicia Singer MD Unavailable Unavailable Alicia Singer MD Unavailable Unavailable Alicia Singer MD Unavailable Unavailable Alicia Singer MD Unavailable Unavailable Alicia Singer MD Unavailable Unavailable Alicia Singer MD Unavailable Unavailable Alicia Singer MD Unavailable Unavailable Alicia Singer MD Unavailable Unavailable Alicia Singer MD Unavailable Unavailable Alicia Singer MD Unavailable Unavailable Alicia Singer MD Unavailable Unavailable Alicia Singer MD Unavailable Unavailable Alicia Singer MD Unavailable Unavailable Alicia Singer MD Unavailable Unavailable Alicia Singer MD Unavailable Unavailable Alicia Singer MD Unavailable Unavailable Alicia Singer MD Unavailable Unavailable Alicia Singer MD Unavailable Unavailable Alicia Singer MD Unavailable Unavailable Alicia Singer MD Unavailable Unavailable Alicia Singer MD Unavailable Unavailable Alicia Singer MD Unavailable Unavailable Alicia Singer MD Unavailable Unavailable Alicia Singer MD Unavailable Unavailable Alicia Singer MD Unavailable Unavailable Alicia Singer MD Unavailable Unavailable Alicia Singer MD Unavailable Unavailable Alicia Singer MD Unavailable Unavailable Alicia Singer MD Unavailable Unavailable Alicia Singer MD Unavailable Unavailable Alicia Singer MD Unavailable Unavailable Alicia Singer MD Unavailable Unavailable Alicia Singer MD Unavailable Unavailable Alicia Singer MD Unavailable Unavailable Alicia Singer MD Unavailable Unavailable Alicia Singer MD Unavailable Unavailable Alicia Singer MD Unavailable Unavailable Alicia Singer MD Unavailable Unavailable Alicia Singer MD Unavailable Unavailable Alicia Singer MD Unavailable Unavailable Alicia Singer MD Unavailable Unavailable Alicia Singer MD Unavailable Unavailable Alicia Singer MD Unavailable Unavailable Alicia Singer MD Unavailable Unavailable Alicia Singer MD Unavailable Unavailable Alicia Singer MD Unavailable Unavailable Alicia Singer MD Unavailable Unavailable Alicia Singer MD Unavailable Unavailable Alicia Singer MD Unavailable Unavailable Alicia Singer MD Unavailable Unavailable Alicia Singer MD Unavailable Unavailable Alicia Singer MD Unavailable Unavailable Alicia Singer MD Unavailable Unavailable Alicia Singer MD Unavailable Unavailable Alicia Singer MD Unavailable Unavailable Alicia Singer MD Unavailable Unavailable Alicia Singer MD Unavailable Unavailable Alicia Singer MD Unavailable Unavailable Alicia Singer MD Unavailable Unavailable Alicia Singer MD Unavailable Unavailable Alicia Singer MD Unavailable Unavailable Elliott Singertech Unavailable Unavailable SleElliott resendiztech Unavailable Unavailable SleadrikaElliotttech Unavailable Unavailable Elliott Singertech Unavailable Unavailable SleElliott resendiztech Unavailable Unavailable SleAlicia resendiz MD Unavailable Unavailable SleElliott resendiztech Unavailable Unavailable SleRyan resendizjtech Unavailable Unavailable SleadrikaRyanjtech Unavailable Unavailable SleElliott resendiztech Unavailable Unavailable Elliott Singertech Unavailable Unavailable Elliott Singertech Unavailable Unavailable SleRyan resendizjtech Unavailable Unavailable SleRyan resendizjtech Unavailable Unavailable SleadrikaRyanjtech Unavailable Unavailable Elliott Singertech Unavailable Unavailable Elliott Singertech Unavailable Unavailable Elliott Singertech Unavailable Unavailable Elliott Singertech Unavailable Unavailable Elliott Singertech Unavailable Unavailable SleRyan resendizjtech Unavailable Unavailable Elliott Singertech Unavailable Unavailable Elliott Singertech Unavailable Unavailable Alicia Singer MD Unavailable Unavailable Elliott Singertech Unavailable Unavailable Elliott Singertech Unavailable Unavailable Ryan Singerjtech Unavailable Unavailable Elliott Singertech Unavailable Unavailable Alicia Singer MD Unavailable Unavailable Alicia Singer MD Unavailable Unavailable Alicia Singer MD Unavailable Unavailable Ryan Singerjtech Unavailable Unavailable Ryan Singerjtech Unavailable Unavailable Elliott Singertech Unavailable Unavailable Alicia Singer MD Unavailable Unavailable Elliott Singertech Unavailable Unavailable Alicia Singer MD Unavailable Unavailable Ryan Singerjtech Unavailable Unavailable Elliott Singertech Unavailable Unavailable RichikaRyanjtech Unavailable Unavailable WORMUTHMagaly MD Unavailable Unavailable WORMUTHMagaly MD Unavailable Unavailable WORMUTHMagaly MD Unavailable Unavailable WORMUTHMagaly MD Unavailable Unavailable WORMUTHMagaly MD Unavailable Unavailable LEEUTHMagaly MD Unavailable Unavailable LEEUTHMagaly MD Unavailable Unavailable LEEUTHMagaly MD Unavailable Unavailable WORMUTHMagaly MD Unavailable Unavailable WORMUTHMagaly MD Unavailable Unavailable WORMUTHMagaly MD Unavailable Unavailable WORMUTHMagaly MD Unavailable Unavailable WORMUTHMagaly MD Unavailable Unavailable WORMUTH, Magaly MAYNARD MD Unavailable Unavailable WORMUTH, Magaly MAYNARD MD Unavailable Unavailable WORMUTH, Magaly MAYNARD MD Unavailable Unavailable WORMUTH, Magaly MAYNARD MD Unavailable Unavailable WORMUTH, Magaly MAYNARD MD Unavailable Unavailable WORMUTH, Magaly MAYNARD MD Unavailable Unavailable WORMUTH, Magaly MAYNARD MD Unavailable Unavailable WORMUTH, Magaly MAYNARD MD Unavailable Unavailable WORMUTH, Magaly MAYNARD MD Unavailable Unavailable WORMUTH, Magaly MAYNARD MD Unavailable Unavailable WORMUTH, Magaly MAYNARD MD Unavailable Unavailable WORMUTH, Magaly MAYNARD MD Unavailable Unavailable WORMUTH, Magaly MAYNARD MD Unavailable Unavailable WORMUTH, Magaly MAYNARD MD Unavailable Unavailable WORMUTH, Magaly MAYNARD MD Unavailable Unavailable WORMUTH, Magaly MAYNARD MD Unavailable Unavailable WORMUTH, Magaly MAYNARD MD Unavailable Unavailable WORMUTH, Magaly MAYNARD MD Unavailable Unavailable WORMUTH, Magaly MAYNARD MD Unavailable Unavailable WORMUTH, Magaly MAYNARD MD Unavailable Unavailable WORMUTH, Magaly MAYNARD MD Unavailable Unavailable WORMUTH, Magaly MAYNARD MD Unavailable Unavailable WORMUTH, Magaly MAYNARD MD Unavailable Unavailable WORMUTH, Magaly MAYNARD MD Unavailable Unavailable WORMUTH, Magaly MAYNARD MD Unavailable Unavailable WORMUTH, Magaly MAYNARD MD Unavailable Unavailable WORMUTH, Magaly MAYNARD MD Unavailable Unavailable WORMUTH, Magaly MAYNARD MD Unavailable Unavailable WORMUTH, Magaly MAYNARD MD Unavailable Unavailable WORMUTH, Magaly MAYNARD MD Unavailable Unavailable WORMUTH, Magaly MAYNARD MD Unavailable Unavailable WORMUTH, Magaly MAYNARD MD Unavailable Unavailable WORMUTH, Magaly MAYNARD MD Unavailable Unavailable WORMUTH, Magaly MAYNARD MD Unavailable Unavailable WORMUTH, Magaly MAYNARD MD Unavailable Unavailable WORMUTH, Magaly MAYNARD MD Unavailable Unavailable WORMUTH, Magaly MAYNARD MD Unavailable Unavailable WORMUTH, Magaly MAYNARD MD Unavailable Unavailable WORMUTH, Magaly MAYNARD MD Unavailable Unavailable WORMUTH, Magaly MAYNARD MD Unavailable Unavailable WORMUTH, Magaly MAYNARD MD Unavailable Unavailable WORMUTH, Magaly MAYNARD MD Unavailable Unavailable WORMUTH, Magaly MAYNARD MD Unavailable Unavailable WORMUTH, Magaly MAYNARD MD Unavailable Unavailable WORMUTH, Magaly MAYNARD MD Unavailable Unavailable WORMUTH, Magaly MAYNARD MD Unavailable Unavailable WORMUTH, Magaly MAYNARD MD Unavailable Unavailable WORMUTH, Magaly MAYNARD MD Unavailable Unavailable WORMUTH, Magaly MAYNARD MD Unavailable Unavailable WORMUTH, Magaly MAYNARD MD Unavailable Unavailable WORMUTH, Magaly MAYNARD MD Unavailable Unavailable WORMUTH, Magaly MAYNARD MD Unavailable Unavailable WORMUTH, Magaly MAYNARD MD Unavailable Unavailable WORMUTH, Magaly MAYNARD MD Unavailable Unavailable WORMUTH, Magaly MAYNARD MD Unavailable Unavailable WORMUTH, Magaly MAYNARD MD Unavailable Unavailable WORMUTH, Magaly MAYNARD MD Unavailable Unavailable WORMUTH, Magaly MAYNARD MD Unavailable Unavailable WORMUTH, Magaly MAYNARD MD Unavailable Unavailable [place], N Juno PUBLIC HEALTH WORKER Unavailable Unavailable [place], N Juno PUBLIC HEALTH WORKER Unavailable Unavailable [place], N Juno PUBLIC HEALTH WORKER Unavailable Unavailable [place], N Juno PUBLIC HEALTH WORKER Unavailable Unavailable [place], N Juno PUBLIC HEALTH WORKER Unavailable Unavailable Tyson, N Juno PUBLIC HEALTH WORKER Unavailable Unavailable [place], N Juno PUBLIC HEALTH WORKER Unavailable Unavailable [place], N Juno PUBLIC HEALTH WORKER Unavailable Unavailable Tyson, N Juno PUBLIC HEALTH WORKER Unavailable Unavailable Tyson, N Juno PUBLIC HEALTH WORKER Unavailable Unavailable Tyson, N Juno PUBLIC HEALTH WORKER Unavailable Unavailable Tyson, N Juno PUBLIC HEALTH WORKER Unavailable Unavailable [place], N Juno PUBLIC HEALTH WORKER Unavailable Unavailable [place], N Juno PUBLIC HEALTH WORKER Unavailable Unavailable Tyson, N Juno PUBLIC HEALTH WORKER Unavailable Unavailable Tyson, N Juno PUBLIC HEALTH WORKER Unavailable Unavailable [place], N Juno PUBLIC HEALTH WORKER Unavailable Unavailable [place], N Juno PUBLIC HEALTH WORKER Unavailable Unavailable Tyson, N Juno PUBLIC HEALTH WORKER Unavailable Unavailable Tyson, N Juno PUBLIC HEALTH WORKER Unavailable Unavailable Tyson, N Jnuo PUBLIC HEALTH WORKER Unavailable Unavailable Tyson, N Juno PUBLIC HEALTH WORKER Unavailable Unavailable Tyson, N Juno PUBLIC HEALTH WORKER Unavailable Unavailable [place], N Juno PUBLIC HEALTH WORKER Unavailable Unavailable [place], N Juno PUBLIC HEALTH WORKER Unavailable Unavailable Tyson, N Juno PUBLIC HEALTH WORKER Unavailable Unavailable [place], N Juno PUBLIC HEALTH WORKER Unavailable Unavailable Tyson, N Juno PUBLIC HEALTH WORKER Unavailable Unavailable Tyson, N Juno PUBLIC HEALTH WORKER Unavailable Unavailable Tyson, N Juno PUBLIC HEALTH WORKER Unavailable Unavailable [place], N Juno PUBLIC HEALTH WORKER Unavailable Unavailable Re-disclosure Warning The records that you are about to access may contain information from federally-assisted alcohol or drug abuse programs. If such information is present, then the following federally mandated warning applies: This information has been disclosed to you from records protected by federal confidentiality rules (42 CFR part 2). The federal rules prohibit you from making any further disclosure of this information unless further disclosure is expressly permitted by the written consent of the person to whom it pertains or as otherwise permitted by 42 CFR part 2. A general authorization for the release of medical or other information is NOT sufficient for this purpose. The Federal rules restrict any use of the information to criminally investigate or prosecute any alcohol or drug abuse patient.The records that you are about to access may contain highly sensitive health information, the redisclosure of which is protected by Article 27-F of the [facility] Public Health law. If you continue you may have access to information: Regarding HIV / AIDS; Provided by facilities licensed or operated by the [facility] Office of Mental Health; or Provided by the [facility] Office for People With Developmental Disabilities. If such information is present, then the following [facility] mandated warning applies: This information has been disclosed to you from confidential records which are protected by state law. State law prohibits you from making any further disclosure of this information without the specific written consent of the person to whom it pertains, or as otherwise permitted by law. Any unauthorized further disclosure in violation of state law may result in a fine or group home sentence or both. A general authorization for the release of medical or other information is NOT sufficient authorization for further disc losure. Family History Family Member Name Family Member Gender Family Member Status Date o f Status Description Data Source(s) Unknown Female Problem MEDENT ([facility]) Unknown Female Problem [facility] ([facility]) Unknown Male Unknown Female Encounters Encounter Providers Location Date Indications Data Source(s ) [place] [address] [facility] [address] 05/14/2020 12:00:00 AM EST eCW1 ([facility]) Outpatient Attender: CAESAR CHURCH MDReferrer: Alicia chance MD 04/25/2020 12:16:08 PM EST [facility] Outpatient Attender: CAESAR CHURCH MD 04/25/2020 12:11:51 PM EST [facility] Outpatient Attender: CAESAR CHURCH MD 04/24/2020 08:48:23 AM EST [facility] Unknown [address] [facility] [address] 04/04/2020 12:00:00 AM EST eCW1 ([facility]) Outpatient Referrer: Alicia SÁNCHEZ-SJPKoryJHONY 10/2019 12:00:00 AM EST - 03/19/2020 11:48:[address] [facility] Outpatient Attender: Juno Mehta NPReferrer: Alicia RODSASJAndreaJHONY 03/19/2020 12:00:00 AM EST - 03/19/2020 11:54:[address] [facility] [place] [address] [facility] [address] 02/22/2020 12:00:00 AM EST eCW1 ([facility]) [facility] [address] [facility] [address] 11/28/2019 12:00:00 AM EDT eCW1 ([facility]) [place] [address] [facility] [address] 11/02/2019 12:00:00 AM EDT eCW1 ([facility]) [place] [address] [facility] [place] [address] 09/29/2019 12:00:00 AM EDT eCW1 ([facility]) Outpatient Attender: Alicia Singer MD SJP.[email or web address].[email or web address] 09/11 12:00:00 AM [facility] [address] [facility] [address] 09/06/2019 12:00:00 AM EDT eCW1 ([facility]) [facility] [address] [facility] [address] 08/20/2019 12:00:00 AM EDT eCW1 ([facility]) [facility] [address] [facility] [address] 08/16/2019 12:00:00 AM EDT eCW1 ([facility]) [facility] [address] [facility] [address] 08/11/2019 12:00:00 AM EDT eCW1 ([facility]) [facility] [address] [facility] [address] 08/02/2019 12:00:00 AM EDT eCW1 ([facility]) [facility] [address] [facility] [place] [address] 08/01/2019 12:00:00 AM EDT eCW1 ([facility]) [facility] [address] [facility] [address] 07/07/2019 12:00:00 AM EDT eCW1 ([facility]) [facility] [address] [facility] [address] 06/29/2019 12:00:00 AM EDT [facility]CW1 [facility] [address] [facility] [address] 06/17/2019 12:00:00 AM EST [facility]CW1 [facility] [address] [facility] [address] 06/03/2019 12:00:00 AM EST eCW1 ([facility]) [facility] [address] [facility] [address] 05/03/2019 12:00:00 AM EST eCW1 ([facility]) [facility] [address] [facility] [address] 04/29/2019 12:00:00 AM EST eCW1 ([facility]) [facility] [address] [facility] [address] 04/28/2019 12:00:00 AM EST eCW1 ([facility]) [facility] [address] [facility] [address] 04/28/2019 12:00:00 AM EST eCW1 ([facility]) [facility] [address] [facility] [address] 04/26/2019 12:00:00 AM EST eCW1 ([facility]) [facility] [address] [facility] [address] 04/26/2019 12:00:00 AM EST eCW1 ([facility] [address] [facility] [address] 04/15/2019 12:00:00 AM EST eCW1 ([facility]) [facility] [address] [facility] [address] 04/12/2019 12:00:00 AM EST eCW1 ([facility]) [facility] [address] [facility] [address] 04/01/2019 12:00:00 AM EST eCW1 ([facility]) Immunizations Vaccine Date Status Description Data Source(s) COVID-19 VACCINE, MRNA-1273, LNP-S (MODERNA)/PF 05/22/2020 1 2:00:00 AM EST completed [facility] Medications Medication Brand Name Start Date Product Form Dose Route Admi nistrative Instructions Pharmacy Instructions Status Indications Reaction Description Data Source(s) Spironolactone 25 MG Oral Tablet spironolactone (ALDAC TONE) 25 MG tablet spironolactone (ALDACTONE) 25 MG tablet 01/05/2020 12:00:00 AM EDT active daily [facility] atorvastatin 10 MG Oral Tablet atorvastatin (LIPITOR) 10 MG tablet atorvastatin (LIPITOR) 10 MG tablet 09/22/2019 12:00:[address] [facility] Hydrochlorothiazide 25 MG Oral Tablet hy drochlorothiazide (HYDRODIURIL) 25 MG tablet hydrochlorothiazide (HYDRODIURIL) 25 MG tablet 020 12:00:00 AM EDT active [facility] Losartan Potassium 25 MG Oral Tablet losartan (COZAAR) 25 MG tablet losartan (COZAAR) 25 MG tablet 07/02/2019 12:00:00 AM EDT active TK [address] [facility] 24 HR Metformin hydrochloride 500 MG Ext ended Release Oral Tablet metFORMIN (GLUCOPHATE-XR) 500 MG 24 hr tablet metFORMIN (GLUCOPHATE-XR) 500 MG 24 hr tablet 07/02/2019 12:00:00 AM EDT active TK [address] [facility] FreeStyle Chastity 14 Day Sensor - FreeStyle Chastity 14 Day Senso r - 06/17/2019 12:00:00 AM EST active as tello you eCW1 (Pending Sale To [facility]) FreeStyle Chastity 14 Day Sensor - FreeStyle Chastity 14 Day Senso r - 06/17/2019 12:00:00 AM EST active FreeStyl e Chastity 14 Day Sensor - eCW1 (Pending Sale To [facility]) FreeStyle Chastity 14 Day Sensor - FreeStyle Chastity 14 Day Senso r - 06/17/2019 12:00:00 AM EST active FreeStyl e Chastity 14 Day Sensor - eCW1 (Pending Sale To [facility]) FreeStyle Chastity 14 Day Sensor - FreeStyle Chastity 14 Day Senso r - 06/17/2019 12:00:00 AM EST active FreeStyl e Chastity 14 Day Sensor - eCW1 (Pending Sale To [facility]) FreeStyle Chastity 14 Day Sensor - FreeStyle Chastity 14 Day Senso r - 06/17/2019 12:00:00 AM EST active as direc kenyatta eCW1 (Pending Sale To [facility]) FreeStyle Chastity 14 Day Sensor - FreeStyle Chastity 14 Day Senso r - 06/17/2019 12:00:00 AM EST active FreeStyl e Chastity 14 Day Sensor - eCW1 (Pending Sale To [facility]) FreeStyle Chastity 14 Day Sensor - FreeStyle Chastity 14 Day Senso r - 06/17/2019 12:00:00 AM EST active FreeStyl e Chastity 14 Day Sensor - eCW1 (Pending Sale To [facility]) Metronidazole 500 MG Oral Tablet [Flagyl] Flagyl 500 MG Flag yl 500 MG 06/03/2019 12:00:00 AM EST active 1 table t eCW1 (Pending Sale To [facility]) Ciprofloxacin 500 MG Oral Tablet Ciprofloxacin HCl 500 MG Ciprofloxacin HCl 500 MG 06/03/2019 12:00:00 AM EST active 1 tablet eCW1 (Pending Sale To [facility]) empagliflozin 10 MG Oral Tablet [Jardiance] Jardiance 10 MG Jardiance 10 MG 05/03/2019 12:00:00 AM EST active 1 tablet eCW1 (Pending Sale To [facility]) empagliflozin 10 MG Oral Tablet [Jardiance] Jardiance 10 MG Jardiance 10 MG 05/03/2019 12:00:00 AM EST active 1 tablet eCW1 (Pending Sale To [facility]) Diclofenac Sodium 0.01 MG/MG Topical Gel Diclofenac So dium 1 % Diclofenac Sodium 1 % 04/01/2019 12:00:00 AM EST active as directed eCW1 (Pending Sale To [facility]) Diclofenac Sodium 0.01 MG/MG Topical Gel Diclofenac So dium 1 % Diclofenac Sodium 1 % 04/01/2019 12:00:00 AM EST active as directed eCW1 (Pending Sale To [facility]) Diclofenac Sodium 0.01 MG/MG Topical Gel Diclofenac So dium 1 % Diclofenac Sodium 1 % 04/01/2019 12:00:00 AM EST active Diclofenac Sodium 1 % eCW1 (Pending Sale To [facility]) Diclofenac Sodium 0.01 MG/MG Topical Gel Diclofenac So dium 1 % Diclofenac Sodium 1 % 04/01/2019 12:00:00 AM EST active Diclofenac Sodium 1 % eCW1 (Pending Sale To [facility]) Diclofenac Sodium 0.01 MG/MG Topical Gel Diclofenac So dium 1 % Diclofenac Sodium 1 % 04/01/2019 12:00:00 AM EST active as directed eCW1 (Pending Sale To [facility]) Diclofenac Sodium 0.01 MG/MG Topical Gel Diclofenac So dium 1 % Diclofenac Sodium 1 % 04/01/2019 12:00:00 AM EST active Diclofenac Sodium 1 % eCW1 (Pending Sale To [facility]) Diclofenac Sodium 0.01 MG/MG Topical Gel Diclofenac So dium 1 % Diclofenac Sodium 1 % 04/01/2019 12:00:00 AM EST active as directed eCW1 (Pending Sale To [facility]) Diclofenac Sodium 0.01 MG/MG Topical Gel Diclofenac So dium 1 % Diclofenac Sodium 1 % 04/01/2019 12:00:00 AM EST active as directed eCW1 (Pending Sale To [facility]) Diclofenac Sodium 0.01 MG/MG Topical Gel Diclofenac So dium 1 % Diclofenac Sodium 1 % 04/01/2019 12:00:00 AM EST active Diclofenac Sodium 1 % eCW1 (Pending Sale To [facility]) Diclofenac Sodium 0.01 MG/MG Topical Gel Diclofenac So dium 1 % Diclofenac Sodium 1 % 04/01/2019 12:00:00 AM EST active Diclofenac Sodium 1 % eCW1 (Pending Sale To [facility]) Insurance Providers Payer name Policy type / Coverage type Policy ID Covered green party ID Covered green party's relationship to lozano Policy [place] Plan Information SELF PAY ONLY [id number] SP [id number] [place] P[place]/307 [id number] [place] [id number] [facility] BCBS B [id number] O YND [id number] [place]/307 [id number] [place] [id number] [place] [employer] [id number] [place] [employer] [id number] Unk YND [id number] [place] PPO [place]/307 [id number] [place] [id number] ANSI-Commercial [id number] ANSI-Commercial [id number] ANSI-Commercial [id number] ANSI-Commercial [id number] ANSI-Commercial [id number] ANSI-Commercial [id number] ANSI-Commercial [id number] ANSI-Commercial [id number] [place]/307 [id number] [place] [id number] ANSI-Commercial [id number] ANSI-Commercial [id number] [place]/307 [id number] [place] [id number] [place]/307 [id number] [place] [id number] Guardian Ins (pr) Medigap Part B Family Dependent BS [place] Commercial Family Dependent [place] BCBS B [id number] P [id number] [place] P[place] 302/307 [id number] [place] [id number] BS Of [place] Commercial Family Dependent [place] PPO 302/307 [id number] [place] [id number] [place] [employer] O [id number] P [id number] Workers Compensation Workers Compensation Self BC/BS Of [place] Medigap Part B Family Dep endent BC/BS Of [place] Commercial Family Depende nt SELF PAY O S [place] BCBS B [id number] P [id number] BLUE CROSS O [id number] SP [id number] [employer] [place] [id number] [id number] SP [id number] Problems, Conditions, and Diagnoses Code Display Name Description Problem Type Effective Dates Data Source(s) K57.92 882359014 Diverticulitis Problem 06/03/2019 12:00:00 A M EST eCW1 (Pending Sale To [facility]) K57.92 335129321 Diverticulitis Problem 06/03/2019 12:00:00 A M EST eCW1 (Pending Sale To [facility]) I45.9 [id number] Skipped heart beats Problem 05/03/2019 12:00 :00 AM EST eCW1 (Pending Sale To [facility]) I45.9 [id number] Skipped heart beats Problem 05/03/2019 12:00 :00 AM EST eCW1 (Pending Sale To [facility]) E78.5 96379643 Hyperlipidemia, unspecified hyperlipidemi a type Problem 04/26/2019 12:00:00 AM EST eCW1 (Pending Sale To [facility]) E78.5 65526425 Hyperlipidemia, unspecified hyperlipidemi a type Problem 04/26/2019 12:00:00 AM EST eCW1 (Pending Sale To [facility]) I10 Essential (primary) hypertension Essential (primary) h ypertension Diagnosis 03/19/2020 10:01:[address] [facility] E78.2 Mixed hyperlipidemia Mixed hyperlipidemia Diagnosis 03/19/2020 10:01:[address] [facility] Q23.1 Congenital insufficiency of aortic valve Congenital insufficiency of aortic valve Diagnosis 03/19/2020 10:01:[address] [facility] I71.2 Thoracic aortic aneurysm, without ruptur e Thoracic aortic aneurysm, without ruptur Diagnosis 03/19/2020 10:00:[address] [facility] E11.9 Type 2 diabetes mellitus without complic ations Type 2 diabetes mellitus without complic Diagnosis 09/27/2019 09:00:[address] [facility] Surgeries/Procedures Procedure Description Date Indications Data Source(s) ECG ROUTINE ECG W/LEAST 12 LDS W/I&R POCT AMB EKG Routine 03/19/2020 11:35 AM EST Bicuspid aortic valve Hypertension 03/19/2020 04:35:00 PM EST HypertensionBicuspid aortic valve [facility] Hypertension Bicuspid aortic valve URINE-NO MICRO 06/03/2019 12:00:00 AM EST eCW1 (Pending Sale To [facility]) EKG- ALL NON MCR/TRI PAYERS 05/03/2019 12:00:00 AM EST eCW1 (Pending Sale To [facility]) Results ID Date Data Source [id number] 05/25/2020 12:00:00 AM EST [facility] Name Value Range Interpretation Code Description Data Lizette rce(s) Supporting Document(s) SARS-CoV-2 (COVID-19) RNA [Presence] in Respiratory specimen by GARRET with probe detection Positive for 2019-nCoV [facility] This lab was ordered by [facility] and reported by [facility]. Procedure Social History Code Duration Value Status Description Data Source(s ) Alcohol intake 03/19/2020 12:00:00 AM EST Yes completed [facility] Smoking 03/19/2020 12:00:00 AM EST Former smoker completed Former smoker [facility] Smoking 08/16/2019 12:00:00 AM EDT Former Smoker completed Former Smoker eCW1 (Pending Sale To [facility]) Smoking 08/16/2019 12:00:00 AM EDT Former Smoker completed Former Smoker eCW1 (Pending Sale To [facility]) Smoking 08/16/2019 12:00:00 AM EDT Former Smoker completed Former Smoker eCW1 (Pending Sale To [facility]) Smoking 08/16/2019 12:00:00 AM EDT Former Smoker completed Former Smoker eCW1 (Pending Sale To [facility]) Smoking 08/16/2019 12:00:00 AM EDT Former Smoker completed Former Smoker eCW1 (Pending Sale To [facility]) Vital Signs ID Date Data Source UNK Name Value Range Interpretation Code Description Data Source(s) Oxygen saturation in Arterial blood by Pulse oximetry 96 % 96 % [facility] Body mass index (BMI) [Ratio] 34.87 kg/m2 34.87 kg/m2 [facility] Body weight 110.[address] [facility] Body height 177.[address] [facility] Respiratory rate 16 /min 16 /min [facility] Heart rate 52 /min 52 /min [facility] Diastolic blood pressure 70 mm[Hg] 70 mm[Hg] [facility] Systolic blood pressure 114 mm[Hg] 114 mm[Hg] [facility] Diastolic blood pressure 76 mm[Hg] 76 mm[Hg] eCW1 (Pending Sale To [facility]) Systolic blood pressure 121 mm[Hg] 121 mm[Hg] e CW1 (Pending Sale To [facility]) Body temperature 97.7 [degF] 97.7 [degF] eCW1 ( Pending Sale To [facility]) Respiratory rate 16 /min 16 /min eCW1 ([facility]) Heart rate 60 /min 60 /min eCW1 (Formerly [facility], 1928–1983) Body mass index (BMI) [Ratio] 35.15 kg/m2 35.15 kg/m2 eCW1 (Pending Sale To [facility]) Body height 70 [in_us] 70 [in_us] eCW1 ([facility]) Body weight Measured 245 [lb_av] 245 [lb_av] eC W1 (Pending Sale To [facility]) Body temperature 98.4 [degF] 98.4 [degF] eCW1 ( Pending Sale To [facility]) Respiratory rate 16 /min 16 /min eCW1 ([facility]) Heart rate 64 /min 64 /min eCW1 (Formerly [facility], 1928[facility]1983) Body mass index (BMI) [Ratio] 34.86 kg/m2 34.86 kg/m2 eCW1 (Pending Sale To [facility]) Body height 70 [in_us] 70 [in_us] eCW1 ([facility]) Body weight Measured 243 [lb_av] 243 [lb_av] eC W1 (Pending Sale To [facility]) Diastolic blood pressure 68 mm[Hg] 68 mm[Hg] eCW1 (Pending Sale To [facility]) Systolic blood pressure 117 mm[Hg] 117 mm[Hg] e CW1 (Pending Sale To [facility]) Body temperature 97.1 [degF] 97.1 [degF] eCW1 ( Pending Sale To [facility]) Respiratory rate 16 /min 16 /min eCW1 ([facility]) Heart rate 59 /min 59 /min eCW1 (Formerly [facility], 1928[facility]1983) Body mass index (BMI) [Ratio] 35.15 kg/m2 35.15 kg/m2 eCW1 (Pending Sale To [facility]) Body height 70 [in_us] 70 [in_us] eCW1 ([facility]) Body weight Measured 245 [lb_av] 245 [lb_av] eC W1 (Pending Sale To [facility]) Diastolic blood pressure 72 mm[Hg] 72 mm[Hg] eCW1 (Pending Sale To [facility]) Systolic blood pressure 110 mm[Hg] 110 mm[Hg] e CW1 (Pending Sale To [facility]) Body temperature 98.0 [degF] 98.0 [degF] eCW1 ( Pending Sale To [facility]) Respiratory rate 16 /min 16 /min eCW1 ([facility]) Heart rate 87 /min 87 /min eCW1 (Formerly [facility], 1928[facility]1983) Body mass index (BMI) [Ratio] 34.86 kg/m2 34.86 kg/m2 eCW1 (Pending Sale To [facility]) Body height 70 [in_us] 70 [in_us] eCW1 ([facility]) Body weight Measured 243 [lb_av] 243 [lb_av] eC W1 (Pending Sale To [facility]) Patient Treatment Plan of Care Planned Activity Planned Date Details Description Data Source (s) Spironolactone 25 MG Oral Tablet 01/05/2020 12:00:[address] [facility] Hydrochlorothiazide 25 MG Oral Tablet 09/22/2019 12:00:[address] [facility] atorvastatin 10 MG Oral Tablet 09/22/2019 12:00:[address] [facility] 24 HR Metformin hydrochloride 500 MG Extended Release Oral Tablet 07/02/2019 12:00:00 AM EDT [facility] Losartan Potassium 25 MG Oral Tablet 07/02/2019 12:00:[address] [facility] FreeStyle Chastity 14 Day Sensor - 06/17/2019 12:00:00 AM EST eCW1 (Pending Sale To [facility]) Metronidazole 500 MG Oral Tablet [Flagyl] 06/03/2019 12:00:00 AM ES T eCW1 (Pending Sale To [facility]) Ciprofloxacin 500 MG Oral Tablet 06/03/2019 12:00:00 AM EST eCW1 (Pending Sale To [facility]) empagliflozin 10 MG Oral Tablet [Jardiance] 05/03/2019 12:00:00 AM EST eCW1 (Pending Sale To [facility]) Diclofenac Sodium 0.01 MG/MG Topical Gel 04/01/2019 12:00:00 AM EST eCW1 (Pending Sale To [facility])
--- OUTSIDE RECORDS SUMMARY | 2020-05-29 18:35 | CCD ---
Author Author [facility] Organization [facility] Address Unknown Phone Unavailable Care Team Providers Care Training Development Specialist Name Role Phone Juno Ivy Unavailable PROBLEMS Type Condition ICD9-CM Code [id number] Code Onset Dates Condition S tatus W/U Status Risk SNOMED Code Notes Problem Type 2 diabetes mellitus wit h hyperglycemia, without long-term current use of insulin E11.65 Active confirmed 32104473 Problem Ascending aortic aneurysm I71.2 Active confirmed 098657845 Problem Morbid (severe) obesity due to excess calories E66 .01 Active confirmed 976332397 Problem Vitamin D deficiency E55.9 Active confirmed 15080894 Problem Hyperlipidemia, unspecified hyperlipidemia type E7 8.5 Active confirmed 10132314 Problem Primary osteoarthritis of both knees M17.0 Act michi confirmed 260953604 Problem Diverticulitis K57.92 Active confirmed 45964 6006 Problem 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 Active confir med 337903990 Problem Body mass index (BMI) of 36.0-36.9 in adult Z68.36 Active confirmed 378751156 Problem Seasonal allergies J30.2 Active confirmed 4 53785742 Problem Kidney stone N20.0 Active confirmed 7753196 7 Problem Skipped heart beats I45.9 Active confirmed 187694795 ALLERGIES No Known Allergies ENCOUNTERS from 1950 to 2020-05-14 Encounter Location Date Provider Diagnosis [facility] [address] [place] [address] May, Juno Ivy IMMUNIZATIONS Vaccine Route Administration Date [...] School Language: Question Answer Notes Languages spoken: [employer]: Question Answer Notes [facility] 35 None Sexual Hx: Question Answer Notes [...] day for 30 day (s) Jan, Active Blood Glucose Test Strip - free style test strips In [place] itro Daily before breakfast and dinner. DX: E11.65 for 90 days Active GlipiZIDE ER 2.5 MG 1 TABLET IN THE AM, 2 TAB PM TWICE A DAY ORALLY 30 DAY(S) Orally twice a day Not-Taking Valacyclovir HCl 1 GM 2 tablet Orally twice daily Oct, Not-Taking Hydrochlorothiazide 25 mg 1 tablet Orally Once a day for 90 Active Diclofenac Sodium 1 % as directed Transdermal before bedtime for 30 days Mar, Active MetFORMIN HCl ER 500 MG 2 tabs Orally bid for 90 days 2018 Active Pen [place] 29G X 12MM as directed Dx : E11.9 subcu taneously Daily for 30 day(s) Jul, Active Glucometer 1 freestyle precision DX:E11.9 for 9999 days August, Active Vitamin D 2000 UNIT 1 capsule Orally Once a day for 30 day(s) Jan, Active Atorvastatin Calcium 10 MG 1 tablet Orally Once a day for 90 Active FreeStyle Chastity Sensor System - 1 sensor subcutaneousl y As directed on packaging. Z74.9 for 30 days Dec, Act michi FreeStyle Chastity 14 Day Sensor - as directed _ as directed for 90 day(s) Jun, Active FreeStyle Chastity 14 Day Sensor - as directed subcutaneo usly Replace every 14 days for 84 days Dec, Active Tamsulosin HCl 0.4 MG 1 capsule Orally Once a day for 30 day(s) Jan, Not-Taking Losartan Potassium 25 1 tablet Orally Once a day for 90 days Active PROCEDURES No Information RESULTS No Results REASON FOR VISIT Refill MEDICAL (GENERAL) HISTORY Type Description Date Medical History HTN Medical History HLD Medical History T2DM, non-insulin dependent Medical History Thoracic aortic aneurism 5.1 cm ascending, 4.6 descending; follows with [facility] Medical History Fatty liver disease Medical History [...] Medication Name Sig Start Date Stop Date MetFORMIN HCl ER 500 MG 2 tabs Orally bid for 90 days Jan, 19 FreeStyle Chastity 14 Day Sensor - as directed subcutaneo usly Replace every 14 days for 84 days Dec, Atorvastatin Calcium 10 MG 1 tablet Orally Once a day for 90 Hydrochlorothiazide 25 mg 1 tablet Orally Once a day for 90 Jardiance 10 MG 1 tablet Orally Once a day for 90 Losartan Potassium 25 1 tablet Orally Once a day for 90 days Insurance Providers Payer Name Payer Address Payer Phone Insured Name Patient Relati onship to Insured Coverage Start Date Coverage End Date BCBS [place] P[employer] [phone] [facility] [id number] [address] [id number]
[2020-05-29] MEDS ORDERED: SPIR-10 (18:41)
[2020-05-29] MEDS ORDERED: JARD1TAB (18:41)
[2020-05-29] MEDS ORDERED: HYDR-3490 (18:41)
[2020-05-29 19:48] LABS: BASO % 0.7 % (0.0-1.0); EOS % 0.2 % (0.0-3.0); HEMATOCRIT 46.2 % (42.0-52.0); HEMOGLOBIN 15.3 g/dl (13.5-17.5); LYMPH # 1.2 10^3/uL (1.5-5.0); LYMPH % 26.3 % (24.0-44.0); MEAN CORPUSCULAR HEMOGLOBIN 27.1 pg (27.0-33.0); MEAN CORPUSCULAR HGB CONC 33.1 g/dl (32.0-36.5); MEAN CORPUSCULAR VOLUME 81.9 fl (80.0-96.0); MONO # 0.6 10^3/uL (0.0-0.8); MONO % 13.2 % (2.0-8.0); NEUTROPHILS # 2.6 10^3/uL (1.5-8.5); NEUTROPHILS % 58.5 % (36.0-66.0); PLATELET COUNT, AUTOMATED 113 10^3/uL (150-450); RED BLOOD COUNT 5.64 10^6/uL (4.30-6.10); WHITE BLOOD COUNT 4.4 10^3/uL (4.0-10.0)
--- NOTE | 2020-05-29 19:56 | ECGEPIP ---
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
--- OUTSIDE RECORDS SUMMARY | 2020-05-29 19:58 | CCD ---
Author Author [facility] Organization [facility] Address Unknown Phone Unavailable Care Team Providers Care Cargo Mate Name Role Phone Alicia Singer MD Unavailable [...] Unavailable Unavailable Alicia Singer MD Unavailable Unavailable Ailcia Singer MD Unavailable Unavailable Alicia Singer MD [...] Unavailable Unavailable Elliott [employer] Unavailable Unavailable Elliott [employer] Unavailable Unavailable Alicia Singer MD Unavailable Unavailable [...] Unavailable WORMUTH, Magaly MAYNARD MD Unavailable Unavailable Griffin, N Juno OPTOMETRY ASSISTANT Unavailable Unavailable Griffin, N Juno OPTOMETRY ASSISTANT Unavailable Unavailable Tyson, N Juno OPTOMETRY ASSISTANT Unavailable Unavailable Griffin, N Juno OPTOMETRY ASSISTANT Unavailable Unavailable Griffin, N Juno OPTOMETRY ASSISTANT Unavailable Unavailable Tyson, N Juno OPTOMETRY ASSISTANT Unavailable Unavailable Griffin, N Juno OPTOMETRY ASSISTANT Unavailable Unavailable Griffin, N Juno OPTOMETRY ASSISTANT Unavailable Unavailable Tyson, N Juno OPTOMETRY ASSISTANT Unavailable Unavailable Tyson, N Juno OPTOMETRY ASSISTANT Unavailable Unavailable Tyson, N Juno OPTOMETRY ASSISTANT Unavailable Unavailable Tyson, N Juno OPTOMETRY ASSISTANT Unavailable Unavailable Griffin, N Juno OPTOMETRY ASSISTANT Unavailable Unavailable Griffin, N Juno OPTOMETRY ASSISTANT Unavailable Unavailable Tyson, N Juno OPTOMETRY ASSISTANT Unavailable Unavailable Tyson, N Juno OPTOMETRY ASSISTANT Unavailable Unavailable Griffin, N Juno OPTOMETRY ASSISTANT Unavailable Unavailable Griffin, N Juno OPTOMETRY ASSISTANT Unavailable Unavailable Tyson, N Juno OPTOMETRY ASSISTANT Unavailable Unavailable Tyson, N Juno OPTOMETRY ASSISTANT Unavailable Unavailable Tyson, N Juno OPTOMETRY ASSISTANT Unavailable Unavailable Tyson, N Juno OPTOMETRY ASSISTANT Unavailable Unavailable Tyson, N Juno OPTOMETRY ASSISTANT Unavailable Unavailable Griffin, N Juno OPTOMETRY ASSISTANT Unavailable Unavailable Griffin, N Juno OPTOMETRY ASSISTANT Unavailable Unavailable Tyson, N Juno OPTOMETRY ASSISTANT Unavailable Unavailable Griffin, N Juno OPTOMETRY ASSISTANT Unavailable Unavailable Tyson, N Juno OPTOMETRY ASSISTANT Unavailable Unavailable Tyson, N Juno OPTOMETRY ASSISTANT Unavailable Unavailable Tyson, N Juno OPTOMETRY ASSISTANT Unavailable Unavailable Griffin, N Juno OPTOMETRY ASSISTANT Unavailable Unavailable Re-disclosure Warning The records that [...] is protected by Article 27-F of the [facility] Public Health law. If you continue you may have access to information: Regarding HIV / AIDS; Provided by facilities licensed or operated by the [facility] Office of Mental Health; or Provided by the [facility] Office for People With Developmental Disabilities. If such information is present, then the following [facility] mandated warning applies: This information has [...] law may result in a fine or snf sentence or both. A general authorization for the release of medical or other information is NOT sufficient authorization for further disc losure. Family History Family Member Name Family Member Gender Family Member Status Date o f Status Description Data Source(s) Unknown Female Problem MEDENT ([facility]) Unknown Female Problem MEDENT ([facility]) Unknown Male Unknown Female Encounters Encounter Providers Location Date Indications Data Source(s ) Unknown [address] [facility] [place] [address] 05/14/2020 12:00:00 AM EST eCW1 ([facility]) Outpatient Attender: CAESAR CHURCH MDReferrer: Alicia chance MD 04/25/2020 12:16:08 PM EST [facility] Outpatient Attender: CAESAR CHURCH MD 04/25/2020 12:11:51 PM EST [facility] Outpatient Attender: CAESAR CHURCH MD 04/24/2020 08:48:23 AM EST [facility] Unknown [address] [facility] [place] [address] 04/04/2020 12:00:00 AM EST eCW1 ([facility]) Outpatient Referrer: Alicia SÁNCHEZ-SJPKoryJHONY 10/2019 12:00:00 AM EST - 03/19/2020 11:48:53 AM EST [facility] Outpatient Attender: Juno Mehta NPReferrer: Alicia RODASSJAndreaJHONY 03/19/2020 12:00:00 AM EST - 03/19/2020 11:54:31 AM EST [facility] Unknown [address] [facility] [place] [address] 02/22/2020 12:00:00 AM EST eCW1 ([facility]) [facility] [address] [facility] [place] [address] 11/28/2019 12:00:00 AM EDT eCW1 ([facility]) Unknown [address] [facility] [place] [address] 11/02/2019 12:00:00 AM EDT eCW1 ([facility]) Unknown [address] [facility] [place] [address] 09/29/2019 12:00:00 AM EDT eCW1 ([facility]) Outpatient Attender: Alicia Singer MD SJP.JHONY-SJP.JHONY 09/11 12:00:00 [facility] [address] [facility] [place] [address] 09/06/2019 12:00:00 AM EDT eCW1 ([facility]) [facility] [address] [facility] [place] [address] 08/20/2019 12:00:00 AM EDT eCW1 ([facility]) [facility] [address] [facility] [place] [address] 08/16/2019 12:00:00 AM EDT eCW1 ([facility]) [facility] [address] [facility] [place] [address] 08/11/2019 12:00:00 AM EDT eCW1 ([facility]) [facility] [address] [facility] [place] [address] 08/02/2019 12:00:00 AM EDT eCW1 ([facility]) [facility] [address] [facility] [place] [address] 08/01/2019 12:00:00 AM EDT eCW1 ([facility]) [facility] [address] [facility] [place] [address] 07/07/2019 12:00:00 AM EDT eCW1 ([facility]) [facility] [address] [facility] [place] [address] 06/29/2019 12:00:00 AM EDT eCW1 ([facility]) [facility] [address] [facility] [place] [address] 06/17/2019 12:00:00 AM EST eCW1 ([facility]) [facility] [address] [facility] [place] [address] 06/03/2019 12:00:00 AM EST eCW1 ([facility]) [facility] [address] [facility] [place] [address] 05/03/2019 12:00:00 AM EST eCW1 ([facility]) [facility] [address] [facility] [place] [address] 04/29/2019 12:00:00 AM EST eCW1 ([facility]) [facility] [address] [facility] [place] [address] 04/28/2019 12:00:00 AM EST eCW1 ([facility]) [facility] [address] [facility] [place] [address] 04/28/2019 12:00:00 AM EST eCW1 ([facility]) [facility] [address] [facility] [place] [address] 04/26/2019 12:00:00 AM EST eCW1 ([facility]) [facility] [address] [facility] [place] [address] 04/26/2019 12:00:00 AM EST eCW1 ([facility]) [facility] [address] [facility] [place] [address] 04/15/2019 12:00:00 AM EST eCW1 ([facility]) [facility] [address] [facility] [place] [address] 04/12/2019 12:00:00 AM EST eCW1 ([facility]) [facility] [address] [facility] [place] [address] 04/01/2019 12:00:00 AM EST eCW1 ([facility]) Immunizations Vaccine Date Status Description Data Source(s) COVID-19 VACCINE, MRNA-1273, LNP-S (MODERNA)/PF 05/22/2020 1 2:00:00 AM EST completed [facility] Medications Medication Brand Name Start Date Product Form Dose Route Admi nistrative Instructions Pharmacy Instructions Status Indications Reaction Description Data Source(s) Spironolactone 25 MG Oral Tablet spironolactone (ALDAC TONE) 25 MG tablet spironolactone (ALDACTONE) 25 MG tablet 01/05/2020 12:00:00 AM EDT active daily [facility] atorvastatin 10 MG Oral Tablet atorvastatin (LIPITOR) 10 MG tablet atorvastatin (LIPITOR) 10 MG tablet 09/22/2019 12:00:00 AM EDT active [facility] Hydrochlorothiazide 25 MG Oral Tablet hy drochlorothiazide (HYDRODIURIL) 25 MG tablet hydrochlorothiazide (HYDRODIURIL) 25 MG tablet 020 12:00:00 AM EDT active [facility] Losartan Potassium 25 MG Oral Tablet losartan (COZAAR) 25 MG tablet losartan (COZAAR) 25 MG tablet 07/02/2019 12:00:00 AM EDT active TK 1 T PO QD [facility] 24 HR Metformin hydrochloride 500 MG Ext ended Release Oral Tablet metFORMIN (GLUCOPHATE-XR) 500 MG 24 hr tablet metFORMIN (GLUCOPHATE-XR) 500 MG 24 hr tablet 07/02/2019 12:00:00 AM EDT active TK 2 TS PO BID [facility] FreeStyle Chastity 14 Day Sensor - FreeStyle Chastity 14 Day Senso r - 06/17/2019 12:00:00 AM EST active as tello you eCW1 ([facility]) FreeStyle Chasitty 14 Day Sensor - FreeStyle Chastity 14 Day Senso r - 06/17/2019 12:00:00 AM EST active FreeStyl e Chastity 14 Day Sensor - eCW1 ([facility]) FreeStyle Chastity 14 Day Sensor - FreeStyle Chastity 14 Day Senso r - 06/17/2019 12:00:00 AM EST active FreeStyl e Chastity 14 Day Sensor - eCW1 ([facility]) FreeStyle Chastity 14 Day Sensor - FreeStyle Chastity 14 Day Senso r - 06/17/2019 12:00:00 AM EST active FreeStyl e Chastity 14 Day Sensor - eCW1 ([facility]) FreeStyle Chastity 14 Day Sensor - FreeStyle Chastity 14 Day Senso r - 06/17/2019 12:00:00 AM EST active as direc kenyatta eCW1 ([facility]) FreeStyle Chastity 14 Day Sensor - FreeStyle Chastity 14 Day Senso r - 06/17/2019 12:00:00 AM EST active FreeStyl e Chastity 14 Day Sensor - eCW1 ([facility]) FreeStyle Chastity 14 Day Sensor - FreeStyle Chastity 14 Day Senso r - 06/17/2019 12:00:00 AM EST active FreeStyl e Chastity 14 Day Sensor - eCW1 ([facility]) Metronidazole 500 MG Oral Tablet [Flagyl] Flagyl 500 MG Flag yl 500 MG 06/03/2019 12:00:00 AM EST active 1 table t eCW1 ([facility]) Ciprofloxacin 500 MG Oral Tablet Ciprofloxacin HCl 500 MG Ciprofloxacin HCl 500 MG 06/03/2019 12:00:00 AM EST active 1 tablet eCW1 ([facility]) empagliflozin 10 MG Oral Tablet [Jardiance] Jardiance 10 MG Jardiance 10 MG 05/03/2019 12:00:00 AM EST active 1 tablet eCW1 ([facility]) empagliflozin 10 MG Oral Tablet [Jardiance] Jardiance 10 MG Jardiance 10 MG 05/03/2019 12:00:00 AM EST active 1 tablet eCW1 ([facility]) Diclofenac Sodium 0.01 MG/MG Topical Gel Diclofenac So dium 1 % Diclofenac Sodium 1 % 04/01/2019 12:00:00 AM EST active as directed eCW1 ([facility]) Diclofenac Sodium 0.01 MG/MG Topical Gel Diclofenac So dium 1 % Diclofenac Sodium 1 % 04/01/2019 12:00:00 AM EST active as directed eCW1 ([facility]) Diclofenac Sodium 0.01 MG/MG Topical Gel Diclofenac So dium 1 % Diclofenac Sodium 1 % 04/01/2019 12:00:00 AM EST active Diclofenac Sodium 1 % eCW1 ([facility]) Diclofenac Sodium 0.01 MG/MG Topical Gel Diclofenac So dium 1 % Diclofenac Sodium 1 % 04/01/2019 12:00:00 AM EST active Diclofenac Sodium 1 % eCW1 ([facility]) Diclofenac Sodium 0.01 MG/MG Topical Gel Diclofenac So dium 1 % Diclofenac Sodium 1 % 04/01/2019 12:00:00 AM EST active as directed eCW1 ([facility]) Diclofenac Sodium 0.01 MG/MG Topical Gel Diclofenac So dium 1 % Diclofenac Sodium 1 % 04/01/2019 12:00:00 AM EST active Diclofenac Sodium 1 % eCW1 ([facility]) Diclofenac Sodium 0.01 MG/MG Topical Gel Diclofenac So dium 1 % Diclofenac Sodium 1 % 04/01/2019 12:00:00 AM EST active as directed eCW1 ([facility]) Diclofenac Sodium 0.01 MG/MG Topical Gel Diclofenac So dium 1 % Diclofenac Sodium 1 % 04/01/2019 12:00:00 AM EST active as directed eCW1 ([facility]) Diclofenac Sodium 0.01 MG/MG Topical Gel Diclofenac So dium 1 % Diclofenac Sodium 1 % 04/01/2019 12:00:00 AM EST active Diclofenac Sodium 1 % eCW1 ([facility]) Diclofenac Sodium 0.01 MG/MG Topical Gel Diclofenac So dium 1 % Diclofenac Sodium 1 % 04/01/2019 12:00:00 AM EST active Diclofenac Sodium 1 % eCW1 ([facility]) Insurance Providers Payer name Policy type / Coverage type Policy ID Covered libertarian ID Covered libertarian's relationship to lozano Policy [place] Plan Information [place]/307 [id number] [place] [id number] SELF PAY ONLY [id number] SP [id number] [place] BCBS B [id number] O YND [id number] [place] 302/307 [id number] [place]2 [id number] [place] BCBS [id number] [place] BCBS [id number] Unk YND [id number] [place] 302/307 [id number] [place]2 [id number] ANSI-Commercial [id number] ANSI-Commercial [id number] ANSI-Commercial [id number] ANSI-Commercial [id number] ANSI-Commercial [id number] ANSI-Commercial [id number] ANSI-Commercial [id number] ANSI-Commercial [id number] [place]BS [place] P[place] 302/307 [id number] WI2 [id number] ANSI-Commercial [id number] ANSI-Commercial [id number] [place] 302/307 [id number] [place]2 [id number] [place] 302/307 [id number] [place]2 [id number] Guardian Ins (pr) Medigap Part B Family Dependent BS [place] Commercial Family Dependent EXCELLUS BCBS B [id number] P VYS [id number] [place] P[place] 302/307 [id number] [place]2 [id number] BS Of [place] Commercial Family Dependent BCBS [place] PPO 302/307 [id number] [place]2 [id number] [employer] O [id number] P [id number] Workers Compensation Workers Compensation Self BC/BS Of [place] Medigap Part B Family Dep endent BC/BS Of [place] Commercial Family Depende nt SELF PAY O S EXCELLUS BCBS B [id number] P [id number] [id number] BLUE [place]OSS O [id number] SP [id number] BCBS [place] 304/804 [id number] SP [id number] Problems, Conditions, and Diagnoses Code Display Name Description Problem Type Effective Dates Data Source(s) K57.92 [id number] Diverticulitis Problem 06/03/2019 12:00:00 A M EST eCW1 ([facility]) K57.92 [id number] Diverticulitis Problem 06/03/2019 12:00:00 A M EST eCW1 ([facility]) I45.9 [id number] Skipped heart beats Problem 05/03/2019 12:00 :00 AM EST eCW1 ([facility]) I45.9 [id number] Skipped heart beats Problem 05/03/2019 12:00 :00 AM EST eCW1 ([facility]) E78.5 [id number] Hyperlipidemia, unspecified hyperlipidemi a type Problem 04/26/2019 12:00:00 AM EST eCW1 ([facility]) E78.5 [id number] Hyperlipidemia, unspecified hyperlipidemi a type Problem 04/26/2019 12:00:00 AM EST eCW1 ([facility]) I10 Essential (primary) hypertension Essential (primary) h ypertension Diagnosis 03/19/2020 10:01:57 AM EST [facility] E78.2 Mixed hyperlipidemia Mixed hyperlipidemia Diagnosis 03/19/2020 10:01:57 AM EST [facility] Q23.1 Congenital insufficiency of aortic valve Congenital insufficiency of aortic valve Diagnosis 03/19/2020 10:01:57 AM EST [facility] I71.2 Thoracic aortic aneurysm, without ruptur e Thoracic aortic aneurysm, without ruptur Diagnosis 03/19/2020 10:00:33 AM EST [facility] E11.9 Type 2 diabetes mellitus without complic ations Type 2 diabetes mellitus without complic Diagnosis 09/27/2019 09:00:40 AM EDT [facility] Surgeries/Procedures Procedure Description Date Indications Data Source(s) ECG ROUTINE ECG W/LEAST 12 LDS W/I&R POCT AMB EKG Routine 03/19/2020 11:35 AM EST Bicuspid aortic valve Hypertension 03/19/2020 04:35:00 PM EST HypertensionBicuspid aortic valve [facility] Hypertension Bicuspid aortic valve URINE-NO MICRO 06/03/2019 12:00:00 AM EST eCW1 ([facility]) EKG- ALL NON MCR/TRI PAYERS 05/03/2019 12:00:00 AM EST eCW1 ([facility]) Results ID Date Data Source [id number] 05/25/2020 12:00:00 AM EST [facility] Name Value Range Interpretation Code Description Data Lizette rce(s) Supporting Document(s) SARS-CoV-2 (COVID-19) RNA [Presence] in Respiratory specimen by GARRET with probe detection Positive for 2019-nCoV [facility] This lab was ordered by [facility] and reported by [facility]. Procedure Social History Code Duration Value Status Description Data Source(s ) Alcohol intake 03/19/2020 12:00:00 AM EST Yes completed [facility] Smoking 03/19/2020 12:00:00 AM EST Former smoker completed Former smoker [facility] Smoking 08/16/2019 12:00:00 AM EDT Former Smoker completed Former Smoker eCW1 ([facility]) Smoking 08/16/2019 12:00:00 AM EDT Former Smoker completed Former Smoker eCW1 ([facility]) Smoking 08/16/2019 12:00:00 AM EDT Former Smoker completed Former Smoker eCW1 ([facility]) Smoking 08/16/2019 12:00:00 AM EDT Former Smoker completed Former Smoker eCW1 ([facility]) Smoking 08/16/2019 12:00:00 AM EDT Former Smoker completed Former Smoker eCW1 ([facility]) Vital Signs ID Date Data Source UNK Name Value Range Interpretation Code Description Data Source(s) Oxygen saturation in Arterial blood by Pulse oximetry 96 % 96 % [facility] Body mass index (BMI) [Ratio] 34.87 kg/m2 34.87 kg/m2 [facility] Body weight 110.224 kg 110.224 kg [facility] Body height 177.8 cm 177.8 cm [facility] Respiratory rate 16 /min 16 /min [facility] Heart rate 52 /min 52 /min [facility] Diastolic blood pressure 70 mm[Hg] 70 mm[Hg] [facility] Systolic blood pressure 114 mm[Hg] 114 mm[Hg] [facility] Diastolic blood pressure 76 mm[Hg] 76 mm[Hg] eCW1 ([facility]) Systolic blood pressure 121 mm[Hg] 121 mm[Hg] e CW1 ([facility]) Body temperature 97.7 [degF] 97.7 [degF] eCW1 ( [facility]) Respiratory rate 16 /min 16 /min eCW1 ([facility]) Heart rate 60 /min 60 /min eCW1 ([facility]) Body mass index (BMI) [Ratio] 35.15 kg/m2 35.15 kg/m2 eCW1 ([facility]) Body height 70 [in_us] 70 [in_us] eCW1 ([facility]) Body weight Measured 245 [lb_av] 245 [lb_av] eC W1 ([facility]) Body temperature 98.4 [degF] 98.4 [degF] eCW1 ( [facility]) Respiratory rate 16 /min 16 /min eCW1 ([facility]) Heart rate 64 /min 64 /min eCW1 ([facility]) Body mass index (BMI) [Ratio] 34.86 kg/m2 34.86 kg/m2 eCW1 ([facility]) Body height 70 [in_us] 70 [in_us] eCW1 ([facility]) Body weight Measured 243 [lb_av] 243 [lb_av] eC W1 ([facility]) Diastolic blood pressure 68 mm[Hg] 68 mm[Hg] eCW1 ([facility]) Systolic blood pressure 117 mm[Hg] 117 mm[Hg] e CW1 ([facility]) Body temperature 97.1 [degF] 97.1 [degF] eCW1 ( [facility]) Respiratory rate 16 /min 16 /min eCW1 ([facility]) Heart rate 59 /min 59 /min eCW1 ([facility]) Body mass index (BMI) [Ratio] 35.15 kg/m2 35.15 kg/m2 eCW1 ([facility]) Body height 70 [in_us] 70 [in_us] eCW1 ([facility]) Body weight Measured 245 [lb_av] 245 [lb_av] eC W1 ([facility]) Diastolic blood pressure 72 mm[Hg] 72 mm[Hg] eCW1 ([facility]) Systolic blood pressure 110 mm[Hg] 110 mm[Hg] e CW1 ([facility]) Body temperature 98.0 [degF] 98.0 [degF] eCW1 ( [facility]) Respiratory rate 16 /min 16 /min eCW1 ([facility]) Heart rate 87 /min 87 /min eCW1 ([facility]) Body mass index (BMI) [Ratio] 34.86 kg/m2 34.86 kg/m2 eCW1 ([facility]) Body height 70 [in_us] 70 [in_us] eCW1 ([facility]) Body weight Measured 243 [lb_av] 243 [lb_av] eC W1 ([facility]) Patient Treatment Plan of Care Planned Activity Planned Date Details Description Data Source (s) Spironolactone 25 MG Oral Tablet 01/05/2020 12:00:00 AM EDT [facility] Hydrochlorothiazide 25 MG Oral Tablet 09/22/2019 12:00:00 AM EDT [facility] atorvastatin 10 MG Oral Tablet 09/22/2019 12:00:00 AM EDT [facility] 24 HR Metformin hydrochloride 500 MG Extended Release Oral Tablet 07/02/2019 12:00:[address] [facility] Losartan Potassium 25 MG Oral Tablet 07/02/2019 12:00:00 AM EDT [facility] FreeStyle Chastity 14 Day Sensor - 06/17/2019 12:00:00 AM EST eCW1 ([facility]) Metronidazole 500 MG Oral Tablet [Flagyl] 06/03/2019 12:00:00 AM ES T eCW1 ([facility]) Ciprofloxacin 500 MG Oral Tablet 06/03/2019 12:00:00 AM EST eCW1 ([facility]) empagliflozin 10 MG Oral Tablet [Jardiance] 05/03/2019 12:00:00 AM EST eCW1 ([facility]) Diclofenac Sodium 0.01 MG/MG Topical Gel 04/01/2019 12:00:00 AM EST eCW1 ([facility])
[2020-05-29 20:00] LABS: INR 0.9; PROTHROMBIN TIME 12.3 SECONDS (12.5-14.3)
[2020-05-29 20:01] LABS: PARTIAL THROMBOPLASTIN TIME 29.5 SECONDS (24.2-38.5)
[2020-05-29 20:04] LABS: D-DIMER QUANT 883.75 ng/ml (<500)
[2020-05-29 20:17] LABS: ALT/SGPT 25 U/L (12-78); BILIRUBIN,TOTAL 0.4 MG/DL (0.2-1.0); BLOOD UREA NITROGEN 21 MG/DL (7-18); C REACTIVE PROTEIN QUANTITATIV 1.17 MG/DL (0.00-0.30); CALCIUM LEVEL 8.8 MG/DL (8.8-10.2); CARBON DIOXIDE LEVEL 28 MEQ/L (21-32); CHLORIDE LEVEL 98 MEQ/L (98-107); CK-MB VALUE MASS < 1.0 NG/ML (<3.6); CPK CREATINE PHOSPHOKINASE 36 U/L (39-308); FERRITIN 332 NG/ML (26-388); GLOMERULAR FILTRATION RATE > 60.0 (>49); GLUCOSE, FASTING 188 MG/DL (70-100); LDH LACTATE DEHYDROGENASE 177 U/L (87-241); MB/CK RELATIVE INDEX 2.78 (< OR =4); POTASSIUM SERUM 3.3 MEQ/L (3.5-5.1); SODIUM LEVEL 136 MEQ/L (136-145); TOTAL PROTEIN 6.9 GM/DL (6.4-8.2); TROPONIN I < 0.02 NG/ML (< 0.10)
--- NOTE | 2020-05-29 20:22 | REPVR ---
PROCEDURE INFORMATION: Exam: XR Chest, 1 View Exam date and time: 05/29/2020 8:09 PM Age: 69 years old Clinical indication: Other: Covid workup; Additional info: Coronavirus workup TECHNIQUE: Imaging protocol: XR of the chest Views: 1 view. COMPARISON: CT Chest without contrast 05/11/2020 8:38 AM FINDINGS: Lungs: Subtle increased markings in the left lower lung zone suspect for a focus of pneumonitis. Remaining lungs are clear. Pleural spaces: Unremarkable. No pleural effusion. No pneumothorax. Heart/Mediastinum: Unremarkable. No cardiomegaly. Bones/joints: Unremarkable. IMPRESSION: Subtle increased markings in the left lower lung zone suspect for a focus of pneumonitis. Electronically signed by: Wm Robledo On 05/29/2020 20:22:54 PM
[2020-05-29 22:01] VITALS: BP 128/71
== END 2020-05-29 22:31 | disposition home or self-care (01) ==
LOC: M ED 18:28
DX: U07.1 COVID-19 (principal); R91.8 Other nonspecific abnormal finding of lung field; E11.9 Type 2 diabetes mellitus without complications; I10 Essential (primary) hypertension; Z79.84 Long term (current) use of oral hypoglycemic drugs; Z79.899 Other long term (current) drug therapy

== ENCOUNTER 2020-05-29 22:11 | Outpatient (CLI) | payer BC ==
[~2020-05-29] VITALS: Ht 177.8 cm; Wt 105.6 kg
--- NOTE | 2020-05-29 21:58 | IPNPDOC ---
Subjective Date Seen The patient was seen on 05/29/20. Subjective Chief Complaint/HPI Mr. Trujillo is a 69 year old male with DM, HTN, and HLD who is here for dyspnea and cough. On May 23, was when he started to have his COVID symptoms. He had chest pain with dull ache, malaise, fever/chills, dyspnea, cough and muscle ache. Symptoms were not improving and so he was tested for COVID on May 25 which he was positive. Since then, he has not been feeling well. He came in to the ED for monoclonal antibiotics. I discussed with him the risks and benefits and he was agreeable to receiving the monoclonal antibodies. PMH 1. Hyperlipidemia 2. Hypertension 3. Diabetes mellitus 4. Thoracic aortic aneurysm PSH 1. Bilateral cataracts 2. Tonsillectomy Social history -Former smoker, quit 25 years ago -Moderate alcohol drinker -No drugs Family history Father: at 69 yo, OR Mother: at 68 yo, cancer Imaging: Radiologist interpretation Subtle increased markings in the left lower lung zone suspect for a focus of pneumonitis. Constitutional: Reports: Chills, Malaise, Fatigue Eyes: Denies: Vision change ENT: Denies: Sore Throat Skin: Denies: Rash Pulmonary: Reports: Dyspnea, Cough Cardiovascular: Reports: Chest Pain (one day duration with the cough) Gastrointestinal: Denies: Nausea, Abdominal Pain Genitourinary: Denies: Dysuria Hematologic: Denies: Bruising Psych: Denies: Anxiety, Depression Objective Physical Examination General Exam: Positive: Alert, Cooperative, No Acute Distress Eye Exam: Positive: EOMI; Negative: Sclera icteric ENT Exam: Positive: Atraumatic Neck Exam: Positive: Supple Chest Exam: Positive: Clear to auscultation; Negative: Rales, Rhonchi, Wheezing Heart Exam: Positive: Rate Normal, Regular Rhythm Abdomen Exam: Positive: Normal bowel sounds, Soft; Negative: Tenderness Extremity Exam: Negative: Edema Neuro Exam: Positive: Cranial Nerves 3-12 NL Psych Exam: Positive: Mental status NL, Mood NL Assessment /Plan Assessment 1. COVID positive -Patient will receive Casirivimab/Imdevimab monoclonal antibiotics -Patient has signed consent -Patient will be monitored for symptoms Diet: diabetic diet Activity: as tolerated Follow up: Patient should follow up with PCP within 5 days Plan/VTE VTE Prophylaxis Ordered?: No (going home today) GABY BASS DO May 29, 2020 21:58
[~2020-05-29 22:11] MED LIST changes: +ALBUTEROL 90 MCG/ACT 8GM HFA INHALER INH PRN; +ALBUTEROL SULFATE 2.5 MG/0.5 ML INH NEB SOLN INH PRN; +EPINEPHrine INJ 1 MG/ML 1ML AMP IM PRN; +HYDR-3490; +JARD1TAB; +NS 1,000 ML IV SCH; +SPIR-10; +diphenhydrAMINE 50MG/ML VIAL (J1200) IV PRN; +methylPREDNISolone 125MG 2ML VIAL IV PRN
[2020-05-29] MEDS ORDERED: CASIRIVIMAB (REGN10933) 1,200 MG, IMDEVIMAB (REGN10987) 1,200 MG in NS 230 ML IV ONE (23:30)
[2020-05-30 00:10] VITALS: BP 111/78
[2020-05-30 00:37] VITALS: BP 109/75
[2020-05-30 01:12] VITALS: BP 113/78
[2020-05-30 02:16] VITALS: BP 92/54
== END 2020-05-30 02:19 | disposition home or self-care (01) ==
LOC: M OPCLI4PV 22:11 → M ICU 23:36 → M OPCLI4PV 05-30 02:19
PROVIDERS: ATTEND Internal Medicine
DX: U07.1 COVID-19 (principal)

== ENCOUNTER → 2021-01-28 | Outpatient (CLI) | payer BC ==
[~2021-01-28] MED LIST changes: -ALBUTEROL 90 MCG/ACT 8GM HFA INHALER INH PRN; -ALBUTEROL SULFATE 2.5 MG/0.5 ML INH NEB SOLN INH PRN; -EPINEPHrine INJ 1 MG/ML 1ML AMP IM PRN; -NS 1,000 ML IV SCH; -diphenhydrAMINE 50MG/ML VIAL (J1200) IV PRN; -methylPREDNISolone 125MG 2ML VIAL IV PRN
--- NOTE | 2021-01-30 05:44 | REP ---
INDICATION: ANEURYSM COMPARISON: 05/11/2020, 07/09/2015 TECHNIQUE: Axial noncontrast images from the thoracic inlet to the upper abdomen with coronal and sagittal reformations. This CT examination was performed using the following dose reduction techniques: Automated exposure control, adjustment of mA and/or kv according to the patient's size, and use of iterative reconstruction technique. FINDINGS: Bilateral lung morales are well aerated and and demonstrate minimal age-related chronic interstitial changes. No acute pulmonary parenchymal process is identified. No suspicious nodule or mass. No effusion. Small mediastinal and hilar lymph nodes are nonspecific and within normal limits/stable. Ascending thoracic aorta measures 5.2 cm maximal diameter tapering through the aortic arch and measuring 3.1 cm maximal diameter at the proximal descending thoracic aorta and 2.7 cm maximal diameter at the level of the diaphragmatic hiatus. Minimal scattered atherosclerotic changes are identified. The heart is normal in size and demonstrates atherosclerotic changes to the coronary arteries without pericardial effusion. Musculoskeletal structures demonstrate age-related degenerative changes. Limited upper abdomen demonstrates normal bilateral adrenal glands. IMPRESSION: 1. Ascending thoracic aortic aneurysm measuring 5.2 cm maximal diameter and essentially unchanged from prior examination. 2. No acute mediastinal or pleuroparenchymal process appreciated. <Electronically signed by Adam Sullivan > 01/30/21 [id number]
== END ==
LOC: M RAD 14:57
PROVIDERS: ATTEND Thoracic Surgery (Cardiothoracic Vascular Surgery)
DX: I71.2 Thoracic aortic aneurysm, without rupture (principal)

== ENCOUNTER → 2021-06-06 | Outpatient (REF) | payer BC ==
[~2021-06-06] MED LIST changes: +LOSA25TA13 PO; -LOSA25TA14 PO
[2021-06-06 13:33] LABS: APPEARANCE, URINE CLEAR (CLEAR); BACTERIA, URINE AUTO NEGATIVE (NEGATIVE); BILIRUBIN, URINE AUTO NEGATIVE (NEGATIVE); BLOOD, URINE BLOOD NEGATIVE (NEGATIVE); GLUCOSE, URINE (UA) AUTO 3+ mg/dL (NEGATIVE); KETONE, URINE AUTO TRACE mg/dL (NEGATIVE); LEUKOCYTE ESTERASE, URINE AUTO NEGATIVE (NEGATIVE); NITRITE, URINE AUTO NEGATIVE (NEGATIVE); PROTEIN, URINE AUTO NEGATIVE (NEGATIVE); RBC, URINE AUTO 0 /HPF (0-3); SPECIFIC GRAVITY URINE AUTO 1.029 (1.002-1.035); SQUAMOUS EPITHELIAL CELL UR AU 0 /HPF (0-6); UROBILINOGEN, URINE AUTO 0.2 mg/dL (0.0-2.0); WBC, URINE AUTO 0 /HPF (0-3)
[2021-06-06 13:38] LABS: COLOR, URINE YELLOW (YELLOW)
== END ==
LOC: M SMT 12:45
PROVIDERS: ATTEND Physician Assistant
DX: R39.9 Unspecified symptoms and signs involving the genitourinary system (principal)

== ENCOUNTER 2021-11-15 16:36 | Outpatient (CLI) | payer BC ==
[~2021-11-15 16:36] MED LIST changes: +ALBUTEROL 90 MCG/ACT 8GM HFA INHALER INH PRN; +ALBUTEROL SULFATE 2.5 MG/0.5 ML INH NEB SOLN INH PRN; +EPINEPHrine INJ 1 MG/ML 1ML AMP IM PRN; -TRIA37.53 PO; +TRIA37.577 PO; +diphenhydrAMINE 50MG/ML VIAL (J1200) IV PRN; +methylPREDNISolone 125MG 2ML VIAL IV PRN
[2021-11-15] MEDS ORDERED: NS 1,000 ML IV SCH (16:40)
[2021-11-15 16:55] VITALS: BP 130/67
[2021-11-15] MEDS ORDERED: BEBTELOVIMAB 175MG 2ML VIAL (EUA) IV ONE (17:30)
[2021-11-15 18:00] VITALS: BP 120/88
[2021-11-15 18:35] VITALS: BP 107/69
== END 2021-11-15 18:43 | disposition home or self-care (01) ==
LOC: M OPCLI4PR 16:36 → M 4MAIN 16:37 → M OPCLI4PR 18:43
PROVIDERS: ATTEND Family Medicine
DX: U07.1 COVID-19 (principal)

== ENCOUNTER → 2021-12-03 | Outpatient (CLI) | payer BC ==
[~2021-12-03] MED LIST changes: -ALBUTEROL 90 MCG/ACT 8GM HFA INHALER INH PRN; -ALBUTEROL SULFATE 2.5 MG/0.5 ML INH NEB SOLN INH PRN; -EPINEPHrine INJ 1 MG/ML 1ML AMP IM PRN; -diphenhydrAMINE 50MG/ML VIAL (J1200) IV PRN; -methylPREDNISolone 125MG 2ML VIAL IV PRN
[2021-12-03 10:50] LABS: BASO # 0.1 10^3/uL (0.0-0.2); BASO % 0.8 % (0.0-1.0); EOS # 0.2 10^3/uL (0.0-0.5); EOS % 2.1 % (0.0-3.0); HEMATOCRIT 45.1 % (42.0-52.0); HEMOGLOBIN 15.3 g/dl (13.5-17.5); MEAN CORPUSCULAR HEMOGLOBIN 28.9 pg (27.0-33.0); MEAN CORPUSCULAR HGB CONC 33.9 g/dl (32.0-36.5); MEAN CORPUSCULAR VOLUME 85.3 fl (80.0-96.0); MONO # 0.7 10^3/uL (0.0-0.8); MONO % 8.3 % (2.0-8.0); NEUTROPHILS % 63.2 % (36.0-66.0); PLATELET COUNT, AUTOMATED 173 10^3/uL (150-450); RED BLOOD COUNT 5.29 10^6/uL (4.30-6.10)
== END ==
LOC: M LAB 09:51
PROVIDERS: ATTEND Family Medicine
DX: D69.6 Thrombocytopenia, unspecified (principal)

== ENCOUNTER → 2021-12-10 | Outpatient (CLI) | payer BC ==
[2021-12-10 13:03] LABS: BLOOD UREA NITROGEN 17 MG/DL (7-18); CALCIUM LEVEL 9.2 MG/DL (8.8-10.2); CARBON DIOXIDE LEVEL 25 MEQ/L (21-32); CHLORIDE LEVEL 105 MEQ/L (98-107); CREATININE FOR GFR 0.95 MG/DL (0.70-1.30); GLOMERULAR FILTRATION RATE > 60.0 (>49); GLUCOSE, FASTING 150 MG/DL (70-100); POTASSIUM SERUM 3.9 MEQ/L (3.5-5.1); SODIUM LEVEL 138 MEQ/L (136-145)
== END ==
LOC: M LAB 10:53
PROVIDERS: ATTEND Internal Medicine
DX: E78.2 Mixed hyperlipidemia (principal)

== ENCOUNTER → 2022-11-13 | Outpatient (CLI) | payer BC ==
[2022-11-13 11:25] LABS: BASO # 0.1 10^3/uL (0.0-0.2); BASO % 0.9 % (0.0-1.0); EOS # 0.2 10^3/uL (0.0-0.5); EOS % 2.3 % (0.0-3.0); HEMATOCRIT 45.3 % (42.0-52.0); HEMOGLOBIN 15.3 g/dl (13.5-17.5); LYMPH # 1.9 10^3/uL (1.5-5.0); LYMPH % 24.7 % (24.0-44.0); MEAN CORPUSCULAR HGB CONC 33.8 g/dl (32.0-36.5); MONO # 0.7 10^3/uL (0.0-0.8); MONO % 9.1 % (2.0-8.0); NEUTROPHILS # 4.8 10^3/uL (1.5-8.5); NEUTROPHILS % 61.7 % (36.0-66.0); PLATELET COUNT, AUTOMATED 138 10^3/uL (150-450); RED BLOOD COUNT 5.27 10^6/uL (4.30-6.10); WHITE BLOOD COUNT 7.7 10^3/uL (4.0-10.0)
[2022-11-13 12:09] LABS: ERYTHROCYTE SEDIMENTATION RATE 4 mm/hr (0-20)
== END ==
LOC: M LAB 11:03
PROVIDERS: ATTEND Ophthalmology
DX: G45.3 Amaurosis fugax (principal)

== ENCOUNTER → 2022-12-02 | Outpatient (CLI) | payer BC | LOC: M CARPUL 11:45 | PROVIDERS: ATTEND Internal Medicine Cardiovascular Disease | DX: G45.3 Amaurosis fugax (principal) ==

== ENCOUNTER 2023-08-25 11:05 | Day surgery (SDC) | payer BC ==
[~2023-08-25] VITALS: Ht 180.3 cm; Wt 105.1 kg
[~2023-08-25 11:05] MED LIST changes: +ATOR1TAB21 PO; +ELIQ5TAB PO; +HYDR12.55 PO; +JARD1TAB3 PO; +SEMA3TAB4 PO; -SPIR-10; +VITA100093 PO
[2023-08-25] MEDS: NS 1,000 ML IV ONE (11:31)
[2023-08-25] MEDS ORDERED: fentaNYL 100 MCG/2 ML INJECTION As Ordered ONE (12:04)
[2023-08-25] MEDS ORDERED: LIDOCAINE 2% 100MG/5ML SDV (FOR ANES.) As Ordered ONE (12:04)
[2023-08-25] MEDS ORDERED: propofoL 200 MG/20 ML VIAL As Ordered ONE (12:04)
[2023-08-25 12:56] VITALS: TEMP 98.2
[2023-08-25 13:14] VITALS: BP 110/67; O2SAT 95
== END 2023-08-25 13:32 | disposition home or self-care (01) ==
LOC: M OPP 11:05
PROVIDERS: ATTEND Internal Medicine Gastroenterology
DX: Z12.11 Encounter for screening for malignant neoplasm of colon (principal); D12.1 Benign neoplasm of appendix; K57.30 Diverticulosis of large intestine without perforation or abscess without bleeding; K64.8 Other hemorrhoids; Z86.010 Personal history of colon polyps; K29.70 Gastritis, unspecified, without bleeding; R12 Heartburn; K22.89 Other specified disease of esophagus; Z95.2 Presence of prosthetic heart valve; I10 Essential (primary) hypertension; E11.9 Type 2 diabetes mellitus without complications; E78.00 Pure hypercholesterolemia, unspecified; Z79.899 Other long term (current) drug therapy; Z79.01 Long term (current) use of anticoagulants; Z79.84 Long term (current) use of oral hypoglycemic drugs; Z90.49 Acquired absence of other specified parts of digestive tract; I71.20 Thoracic aortic aneurysm, without rupture, unspecified; Z87.891 Personal history of nicotine dependence; G47.33 Obstructive sleep apnea (adult) (pediatric)
CPT/HCPCS: 43239; 45385; 88305; J3010